=== PATIENT | male | born 1955 | race Caucasian/White ===

== ENCOUNTER 2024-01-07 21:37 | Inpatient (IN) | payer MEDICARE, OTHER, SELFPAY ==
[2024-01-07 17:56] VITALS: BP 150/86
[2024-01-07 18:34] LABS: % Basophils 0.6 % (0-2); % Eosinophils 1.7 % (0-6); % Immature Granulocytes 0.2 % (0-0.5); % Lymphocytes 19.6 % (20.5-51.1); % Monocytes 7.7 % (1.7-9.3); % Neutrophils 70.2 % (42.2-75.2); Absolute Basophils 0.1 10^3/uL (0-0.2); Absolute Eosinophils 0.2 10^3/uL (0-0.7); Absolute Lymphocytes 1.9 10^3/uL (1.2-3.4); Absolute Monocytes 0.8 10^3/uL (0.1-0.6); Hematocrit 42.1 % (39.0-52.0); Hemoglobin 13.5 g/dL (13.0-18.0); Mean Corp Hgb Conc. 32.1 g/dL (33.0-37.0); Mean Corpuscular Hgb 28.9 pg (27.0-31.0); Mean Corpuscular Volume 90.1 fL (80.0-94.0); Nucleated Red Blood Cells % 0 % (-); Platelet Count 268 10^3/uL (130-400); Red Blood Cell Count 4.67 10^6/uL (4.70-6.10); Red Cell Dist. Width 13.6 % (11.5-14.5); White Blood Cell Count 9.9 10^3/uL (4.8-10.8)
[2024-01-07 18:49] LABS: Blood Urea Nitrogen 16 mg/dl (9-20); Calcium 9.2 mg/dl (8.4-10.2); Carbon Dioxide 26 mmol/L (22-30); Chloride 103 mmol/L (98-107); Glucose 92 mg/dl (70-99); Sodium 138 mmol/L (135-145); eGFR > 60.00
[2024-01-07 19:03] VITALS: BP 139/78
[2024-01-07 19:14] LABS: Urine Albumin Negative (Neg - Trace); Urine Bilirubin Negative (Negative); Urine Character Slightly Cloudy (Clear); Urine Color Yellow; Urine Glucose Negative (Negative); Urine Ketone Trace (Negative); Urine Leukocyte 2+ (Negative); Urine Nitrite Positive (Negative); Urine Occult Blood Negative (Negative); Urine Urobilinogen Negative (Neg - 1+)
[2024-01-07 19:32] LABS: Urine Bacteria Many (Negative); Urine Red Blood Cell 0-2 /HPF (0-2); Urine White Cell 80-90 /HPF (0-5)
[2024-01-07 19:36] LABS: ALT (SGPT) 52 U/L (0-50); AST (SGOT) 68 U/L (17-59); Albumin 3.9 g/dl (3.5-5.0); Alkaline Phosphatase 52 U/L (38-126); Blood Urea Nitrogen 16 mg/dl (9-20); Calcium 9.2 mg/dl (8.4-10.2); Carbon Dioxide 22 mmol/L (22-30); Chloride 105 mmol/L (98-107); Glucose 95 mg/dl (70-99); Potassium 4.7 mmol/L (3.5-5.1); Sodium 136 mmol/L (135-145); Total Bilirubin 1.3 mg/dl (0.2-1.3); eGFR > 60.00
[2024-01-07 20:00] VITALS: BP 126/78
[2024-01-07] MEDS: ROCEPHIN 1000 MG IV (20:49)
--- NOTE | 2024-01-07 20:50 | HPS.HSE ---
Addendum entered and electronically signed by Wilber Orr DO 01/07/24 22:15:
Patient seen and examined independently. Agree with findings and plan as set forth by BRYCE Schmitz.
Patient is a 68y M with PMH significant for prior CVA with resultant R hemiparesis and expressive aphasia who was brought to the ED this evening by EMS after his home health aide appreciated increased generalized weakness. History obtained
primarily through discussion with ED staff and evaluation of patient. Attempted to contact family without success.
Patient is awake and alert and is able to answer Y/NN questions fairly consistently. He has expressive aphasia that prevents more detailed speech / open-ended questioning.
Patient denies any pain and denies any significant complaints at the moment the best I can tell.
Evaluation in the ED includes a UA which is suggestive of infection.
Ass:
UTI
Generalized Weakness
Right Hemiparesis / Expressive Aphasia as Late Effect of CVA
ASCVD / CVA
Colon Cancer
Plan:
Admit for further evaluation and treatment.
IV abx for now pending urine culture results.
PT / OT evaluations.
Follow for clinical improvement.
Continue current outpatient med regimen without changes.
Original Note:
Family Physician
-
Family Physician: NOT KNOW UNKNOWN - PT DOES
Chief Complaint
-
Generalized weakness
History of Present Illness
68-year-old with past medical history for CVA, hyperlipidemia right-sided hemiplegia from CVA, depression presented to us with generalized weakness. Patient not able to provide much of a history. As per ER nurse, he has 24 hours aide. he looked
weaker than usual so she called 911. Patient denied any DARBY,dizzy or syncopal episode. denied chest paoin, sob. denied abdominal pain,n ,v,d.denied dysuria or hematuria.
Positive UA in ER. Patient received a dose of ceftriaxone in ER. Admitting for further management
Attempted to reach son
Medical History
Past Medical History
Past Medical History: Reports Other
Additional Past Medical History:
CVA
Hyperlipidemia
Hemiplegia
Colon cancer
Past Surgical History: Reports Other
Additional Past Surgical History:
Small bowel resection
Social History
Unable to obtain full social history at this time due to: Dementia
Family History
Family History: Not pertinent
Allergies / Home Medications
Allergies reflects when Allergies were last updated in [facility].
Home Medications with original date entered in [facility]
Allergy/Medication List:
Allergies
Allergy/AdvReac Type Severity Reaction Status Date / Time
meperidine Allergy Unknown Verified 03/05/17 08:58
morphine Allergy Unknown Verified 03/05/17 08:58
Home Medications
aspirin 81 mg tablet,delayed release 81 mg PO DAILY 01/07/24
atorvastatin 40 mg tablet (Lipitor) 40 mg PO DAILY 01/07/24
citalopram 20 mg tablet (Celexa) 20 mg PO DAILY 01/07/24
Review of Systems
-
Unable to obtain full review of systems at this time due to: Dementia
Physical Exam
Vital Signs
Vital Signs
Temp Pulse Resp BP Pulse Ox
99.4 F 105 19 126/78 96
01/07/24 17:56 01/07/24 20:30 01/07/24 20:30 01/07/24 20:00 01/07/24 20:15
Physical Exam
General: Well Developed, Well Nourished and No Apparent Distress
HEENT: NormoCephalic, Moist mucous membranes and Atraumatic
Respiratory: Clear
Cardiac: S1/S2 and Regular Rhythm; No Murmur or Rub
GI: Soft, Non Tender, Non Distended and Normal Bowel Sounds; No Organomegaly
Rectal: Deferred by Provider
Musculoskeletal: No Clubbing, No Cyanosis and No Edema
Skin: No Rash
Neuro: Nonfocal/grossly intact
Laboratory Results
-
01/07/24 18:08
01/07/24 18:59
Laboratory Results
Total Bilirubin 1.3 mg/dl (0.2-1.3) 01/07/24 18:59
AST 68 U/L (17-59) H 01/07/24 18:59
ALT 52 U/L (0-50) H 01/07/24 18:59
Alkaline Phosphatase 52 U/L (38-126) 01/07/24 18:59
Data Reviewed
-
Lab Data: Labs Reviewed by me
Impression/Plan
-
#generalized weakness/low grade fever likely from UTI
-IV ceftriaxone in ER
-Urine culture pending
-Tylenol as needed for fever and pain.
-PT/OT consulted for weakness
-normal saline x1 bag
#LFT elevation likely dehydration
-ast 68,alt 52
-Trend LFT in a.m.
# History of CVA with right-sided weakness/expressive aphasia
-Aspirin and statin continued
# Depression
-Citalopram continued
# DVT prophylaxis
-Lovenox subcu
# CODE STATUS
-Full code
[2024-01-07 21:00] VITALS: BP 133/84
--- NOTE | 2024-01-07 21:06 | ED.GENMED ---
History of Present Illness
General
Chief Complaint: Weakness
Source: patient
Exam Limitations: none
Time Seen by Provider: 01/07/24 19:58
Nursing documentation reviewed up to this point in time: agreed with
Travel History
Have you had any contact with someone who has COVID-19?: Unable to Answer
Do you have any symptoms of coronavirus? Fever > 100 degrees, chills, cough, shortness of breath, sore throat, loss of taste or smell, muscle aches, or headache?: Unable to Answer
History of Present Illness
History of Present Illness:
The patient is a 68-year-old man with a past medical history of right-sided weakness due to stroke, who arrives due to general weakness. Patient denies all complaints. He denies nausea and vomiting. Patient has a history of chronic aphasia so is
a very limited historian. Patient denies cough, sore throat, headache and rash.
Past History
Past History
ED Past Medical History: CVA and Hypercholesterolemia
ED Past Surgical History: Other
Social History
Tobacco: Other
Alcohol: Other
Drug: None
Personal: Other
Living: with family
Employment: Retired
Family History
Family History: Unable to obtain
Review of Systems
Review of Systems
Allergies reviewed?: Yes
All Other Systems: ROS reviewed and negative except as documented in HPI and ROS
Constitutional: Reports fatigue
EENT: Reports no symptoms
Respiratory: Reports no symptoms
Cardiac: Reports no symptoms
ABD/GI: Reports no symptoms
: Reports no symptoms
Musculoskeletal: Reports no symptoms
Skin: Reports no symptoms
Neurological: Reports no symptoms
Endocrine: Reports no symptoms
Hematologic/Lymphatic: Reports no symptoms
Psychiatric: Reports no symptoms
Phy Exam
Physical Exam
Physical Exam:
Physical Exam
General: no apparent distress, not acutely ill
Neck: supple. no meningeal signs. normal psoterior pharynx
Heart: Tachycardic
Lungs: no acute respiratory distress. clear bilaterally
Abdomen: normal bowel sounds. not tender. no CVAT
Neuro: alert and oriented. Chronic right arm and right leg weakness
Skin: no rash
Psychiatric: well kept. interactive and cooperative
Extremities: 1+ pitting edema bilateral lower extremities. Negative Homans' sign
Course
Orders/Labs/Results
Orders:
Orders
01/07/24 18:01
Electrocardiogram (*1) Urgent
Reason for Study: Fatigue / Weakness
EKG- Treatment ONCE
01/07/24 18:08
Basic Metabolic Panel Urgent
Comment: BMP NO K
Complete Blood Count/With Diff Urgent
01/07/24 18:59
Comprehensive Metabolic Panel Urgent
Urinalysis Reflex To Culture Urgent
Date Specimen was Collected: 01/07/24
Time Specimen was Collected: 18:54
Urine Microscopic Reflex Cult Urgent
Urine Culture Urgent
EILEEN Source: U
Specimen Description:
Date Specimen was Collected: 01/07/24
Time Specimen was Collected: 18:54
01/07/24 20:44
CefTRIAXone [Rocephin] 1,000 mg IV NOW STA
Abnormal Lab Results
01/07/24 01/07/24
18:08 18:59
RBC 4.67 L 10^6/uL
(4.70-6.10)
MCHC 32.1 L g/dL
(33.0-37.0)
Absolute Neuts (auto) 7.0 H 10^3/uL
(1.4-6.5)
Absolute Monos (auto) 0.8 H 10^3/uL
(0.1-0.6)
Lymphocytes % 19.6 L %
(20.5-51.1)
AST 68 H U/L
(17-59)
ALT 52 H U/L
(0-50)
Urine Ketones Trace A
(Negative)
Urine Nitrite (Reflex) Positive A
(Negative)
Leukocyte Esterase Rfl 2+ A
(Negative)
Urine WBC (Reflex) 80-90 A /HPF
(0-5)
Urine Bacteria (Reflex) Many A
(Negative)
01/07/24 18:08
01/07/24 18:59
Vital Signs
Initial and Last Documented VS:
Initial Vital Signs
Temp Pulse Resp BP Pulse Ox
99.4 F 99 20 150/86 96
01/07/24 17:56 01/07/24 17:56 01/07/24 17:56 01/07/24 17:56 01/07/24 17:56
Last Documented Vital Signs
Temp Pulse Resp BP Pulse Ox
99.4 F 97 21 133/84 95
01/07/24 17:56 01/07/24 21:00 01/07/24 21:00 01/07/24 21:00 01/07/24 21:00
MDM/Problems Addressed
Differential Diagnosis Includes:
Acute UTI, pneumonia, hyponatremia
MDM/Problems Addressed:
Presents with acute generalized weakness
Chronic conditions affecting care: Other (History of right-sided weakness)
Acute Exacerbation and/or Progression of Chronic Illness: Neurological disorder
*Pulse Oximetry
Patient hypoxic: no
*EKG
Interpreted by ED Provider?: Yes
Interpretation: abnormal
Comparison EKG: no comparison EKG present
Rate: normal
Rhythm: sinus
[place]: left axis deviation
Interval: normal interval
QRS Pattern: normal QRS
Ischemia: non-specific ST changes
*Text Transcriber Interpretation
Rate: tachycardiac
Interpretation: abnormal
Rhythm: sinus
*Critical Care Note
Total Time (30-74mins, 75-104mins- exclusive of procedures): Not Applicable
ED Attending Note
-
Portions of this chart may have been created with voice recognition software.� Occasional wrong word or��sound alike� substitutions may have occurred due to the inherent limitations of voice recognition software.
Discharge Plan
Departure
Patient Disposition: Admit
Date of Disposition: 01/07/24
Time of Disposition: 20:45
Admit to: Med/Surg
Presentation/result/management discussed w/ accepting MD/DO: Hospitalist
Patient with high blood pressure during this ER visit?: Yes
Condition: Good
Covid-19: Not Applicable
Discharge Problem:
Acute UTI, Generalized weakness
Prescriptions:
No Action
citalopram [Celexa] 20 mg Tablet
20 mg PO DAILY
atorvastatin [Lipitor] 40 mg Tablet
40 mg PO DAILY
aspirin 81 mg Tablet,Delayed Release (Dr/Ec)
81 mg PO DAILY
Referrals:
UNKNOWN - PT DOES,NOT KNOW [Family Provider] -
Interventions
Interventions:
*Risk Screen - Suicide Last Done: 01/07/24 17:56
*General Assessment Last Done: 01/07/24 17:56
*Neglect/Abuse Screening Last Done: 01/07/24 17:56
*ED COVID-19 Vaccine History Last Done: 01/07/24 17:56
ED- Cardiac Assessment Last Done: 01/07/24 18:09
ED- Neurological Assessment Last Done: 01/07/24 18:09
ED- Pulmonary Assessment Last Done: 01/07/24 18:09
Discharge Date and Time
Print Language: WALLISIAN
[2024-01-07 22:30] VITALS: BMI 35.2
[2024-01-07] MEDS: NSS 1000 IV (22:32)
[2024-01-07 23:06] VITALS: BP 124/78
[2024-01-08 07:00] VITALS: BP 96/57
[2024-01-08 07:15] LABS: Hematocrit 35.1 % (39.0-52.0); Hemoglobin 11.7 g/dL (13.0-18.0); Mean Corp Hgb Conc. 33.3 g/dL (33.0-37.0); Mean Corpuscular Volume 87.1 fL (80.0-94.0); Mean Platelet Volume 10.2 fL (7.4-10.4); Platelet Count 249 10^3/uL (130-400); Red Blood Cell Count 4.03 10^6/uL (4.70-6.10); Red Cell Dist. Width 13.5 % (11.5-14.5); White Blood Cell Count 6.5 10^3/uL (4.8-10.8)
[2024-01-08 07:37] LABS: Blood Urea Nitrogen 14 mg/dl (9-20); Calcium 8.5 mg/dl (8.4-10.2); Carbon Dioxide 24 mmol/L (22-30); Chloride 107 mmol/L (98-107); Estimated Creatinine Clearance 121 ml/min; Glucose 90 mg/dl (70-99); Potassium 4.1 mmol/L (3.5-5.1); Sodium 138 mmol/L (135-145); eGFR > 60.00
[2024-01-08] MEDS: CELEXA 20 MG PO (09:06)
[2024-01-08] MEDS: LIPITOR 40 MG PO (09:06)
[2024-01-08] MEDS: ASPIR LOW (ENTERIC COATED) 81 MG PO (09:06)
--- NOTE | 2024-01-08 12:39 | W.PN.HOSP.TC ---
Today's Communication/Plan
-
see A/P
Assessment / Plan
Assessment / Plan
HPI: 68 yo M with PMH significant for prior CVA with resultant R hemiparesis and expressive aphasia who was brought to the ED after his home health aide noted increased generalized weakness.
History was obtained primarily through discussion with ED staff and evaluation of patient.
Patient is awake and alert and is able to answer Y/N questions fairly consistently. He has expressive aphasia that prevents more detailed speech / open-ended questioning.
Evaluation in the ED includes a UA which is suggestive of infection.
A/P
# Generalized Weakness likely due to UTI
IV Ceftriaxone for now pending urine culture results.
PT / OT evaluations.
# Mild transaminitis likely reactive
Cont to monitor LFT
# BL LE edema, R > L
check BL LE US
# Chronic Right Hemiparesis / Expressive Aphasia due to previous stroke
# ASCVD / CVA
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
# h/o Colon Cancer
# Depression
cont [employer] IMM[employer] Citalopram
DVT ppx: Lovenox SQ
FC
DW RN
Anticipated Discharge: 24 - 48 hours
Subjective/Interval History
-
Date of Service: January 08, 2024
Objective Data
-
Labs:
Laboratory Results
01/08/24
06:19
WBC 6.5
Hgb 11.7 L
Hct 35.1 L
Plt Count 249
Sodium 138
Potassium 4.1
Chloride 107
Carbon Dioxide 24
BUN 14
Creatinine 0.7
Glucose 90
Calcium 8.5
Vital Signs:
Vital Signs
Temp Pulse Resp BP Pulse Ox
36.6 C 72 16 96/57 96
01/08/24 07:00 01/08/24 07:00 01/08/24 07:00 01/08/24 07:00 01/08/24 07:00
I&O
01/07/24 01/08/24 01/09/24
06:59 06:59 06:59
Output Total 200 / 200
Balance -200 / -200
Review of Systems
-
Unable to obtain full review of systems at this time due to: Other (aphasia due to previous stroke )
Physical Exam
-
General: Well Developed, Well Nourished, No Apparent Distress, Comfortable and Obese; Negative Respiratory Distress
HEENT: Normocephalic, Atraumatic, Nose Appears Normal and Ears Appear Normal; Negative Oxygen
Respiratory: Clear to Auscultation and Non Labored Respirations; Negative Accessory Resp Muscle Use
Cardiac: Regular Rhythm and S1/S2
GI: Soft, Nontender, Nondistended and Normal Bowel Sounds
Skin: Warm and Dry
Neuro: Awake, Alert and Other (aphasia at baseline )
Psych: Calm
Data Reviewed
-
Labs: Labs Reviewed by me
[2024-01-08 14:23] VITALS: BP 120/78; PULSE 80
[2024-01-08 15:00] VITALS: BP 103/61
[2024-01-08] MEDS: LOVENOX 40 MG SC (17:36)
[2024-01-08] MEDS: STERILE WATER FOR INJECTION 10 ML IV (20:11)
[2024-01-08] MEDS: ROCEPHIN 1000 MG IV (20:12)
[2024-01-08 23:52] VITALS: BP 132/75
[2024-01-09 07:00] VITALS: BP 108/71
[2024-01-09 07:48] LABS: Hematocrit 36.1 % (39.0-52.0); Mean Corp Hgb Conc. 33.2 g/dL (33.0-37.0); Mean Corpuscular Hgb 29.1 pg (27.0-31.0); Mean Corpuscular Volume 87.4 fL (80.0-94.0); Mean Platelet Volume 10.5 fL (7.4-10.4); Platelet Count 238 10^3/uL (130-400); Red Blood Cell Count 4.13 10^6/uL (4.70-6.10); Red Cell Dist. Width 13.5 % (11.5-14.5); White Blood Cell Count 5.6 10^3/uL (4.8-10.8)
[2024-01-09 08:10] LABS: ALT (SGPT) 45 U/L (0-50); AST (SGOT) 50 U/L (17-59); Albumin 3.3 g/dl (3.5-5.0); Alkaline Phosphatase 50 U/L (38-126); Blood Urea Nitrogen 12 mg/dl (9-20); Calcium 8.6 mg/dl (8.4-10.2); Carbon Dioxide 23 mmol/L (22-30); Chloride 108 mmol/L (98-107); Direct Bilirubin 0.2 mg/dl (0.0-0.4); Estimated Creatinine Clearance > 125 ml/min; Glucose 91 mg/dl (70-99); Potassium 4.4 mmol/L (3.5-5.1); Sodium 138 mmol/L (135-145); Total Bilirubin 1.1 mg/dl (0.2-1.3); Total Protein 6.1 g/dl (6.3-8.2); eGFR > 60.00
[2024-01-09] MEDS: LIPITOR 40 MG PO (08:23)
[2024-01-09] MEDS: ASPIR LOW (ENTERIC COATED) 81 MG PO (08:23)
[2024-01-09] MEDS: CELEXA 20 MG PO (08:23)
--- NOTE | 2024-01-09 11:29 | W.PN.HOSP.TC ---
Today's Communication/Plan
-
see A/P
Assessment / Plan
Assessment / Plan
HPI: 68 yo M with PMH significant for prior CVA with resultant R hemiparesis and expressive aphasia who was brought to the ED after his home health aide noted increased generalized weakness.
History was obtained primarily through discussion with ED staff and evaluation of patient.
Patient is awake and alert and is able to answer Y/N questions fairly consistently. He has expressive aphasia that prevents more detailed speech / open-ended questioning.
Evaluation in the ED includes a UA which is suggestive of infection.
A/P
# Generalized Weakness likely due to UTI
Urine Cx growing GNR, cont to follow
Cont IV Ceftriaxone
PT / OT : no need
# Mild transaminitis likely reactive , resolved
# BL LE edema, R > L
check BL LE US
# Chronic Right Hemiparesis / Expressive Aphasia due to previous stroke
# ASCVD / CVA
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
# h/o Colon Cancer
# Depression
cont [employer]GER [employer] Citalopram
DVT ppx: Lovenox SQ
FC
DW RN
Anticipated Discharge: Within 24 hours
Subjective/Interval History
-
Date of Service: January 09, 2024
Objective Data
-
Labs:
Laboratory Results
01/09/24
06:59
WBC 5.6
Hgb 12.0 L
Hct 36.1 L
Plt Count 238
Sodium 138
Potassium 4.4
Chloride 108 H
Carbon Dioxide 23
BUN 12
Creatinine 0.6 L
Glucose 91
Calcium 8.6
Total Bilirubin 1.1
AST 50
ALT 45
Alkaline Phosphatase 50
Vital Signs:
Vital Signs
Temp Pulse Resp BP Pulse Ox
36.6 C 71 18 108/71 95
01/09/24 07:00 01/09/24 07:00 01/09/24 07:00 01/09/24 07:00 01/09/24 07:00
I&O
01/08/24 01/09/24 01/10/24
06:59 06:59 06:59
Intake Total 480 / 480
Output Total 200 / 200 800 / 800
Balance -200 / -200 -320 / -320
Review of Systems
-
Unable to obtain full review of systems at this time due to: Other (aphasia due to previous stroke )
Physical Exam
-
General: Well Developed, Well Nourished, No Apparent Distress, Comfortable and Obese; Negative Respiratory Distress or Conversant (only able to say 'yeah yeah')
HEENT: Normocephalic, Atraumatic, Nose Appears Normal and Ears Appear Normal; Negative Oxygen
Respiratory: Clear to Auscultation and Non Labored Respirations; Negative Accessory Resp Muscle Use
Cardiac: Regular Rhythm and S1/S2
GI: Soft, Nontender, Nondistended and Normal Bowel Sounds
Skin: Warm and Dry
Neuro: Awake, Alert and Other (aphasia at baseline )
Psych: Calm
Data Reviewed
-
Labs: Labs Reviewed by me
[2024-01-09 15:00] VITALS: BP 104/69
[2024-01-09] MEDS: LOVENOX 40 MG SC (17:17)
[2024-01-09] MEDS: ROCEPHIN 1000 MG IV (20:34)
[2024-01-09] MEDS: STERILE WATER FOR INJECTION 10 ML IV (20:35)
[2024-01-09 22:53] VITALS: BP 125/69
[2024-01-10 07:10] VITALS: BP 102/63
[2024-01-10 07:47] LABS: Hemoglobin 12.8 g/dL (13.0-18.0); Mean Corp Hgb Conc. 32.8 g/dL (33.0-37.0); Mean Corpuscular Hgb 29.2 pg (27.0-31.0); Mean Corpuscular Volume 88.8 fL (80.0-94.0); Mean Platelet Volume 10.7 fL (7.4-10.4); Platelet Count 244 10^3/uL (130-400); Red Blood Cell Count 4.39 10^6/uL (4.70-6.10); Red Cell Dist. Width 13.4 % (11.5-14.5); White Blood Cell Count 5.8 10^3/uL (4.8-10.8)
[2024-01-10 08:28] LABS: ALT (SGPT) 58 U/L (0-50); AST (SGOT) 64 U/L (17-59); Albumin 3.4 g/dl (3.5-5.0); Alkaline Phosphatase 49 U/L (38-126); Blood Urea Nitrogen 14 mg/dl (9-20); Calcium 8.8 mg/dl (8.4-10.2); Carbon Dioxide 22 mmol/L (22-30); Chloride 108 mmol/L (98-107); Direct Bilirubin 0.3 mg/dl (0.0-0.4); Estimated Creatinine Clearance 121 ml/min; Glucose 91 mg/dl (70-99); Potassium 4.2 mmol/L (3.5-5.1); Sodium 137 mmol/L (135-145); Total Bilirubin 0.9 mg/dl (0.2-1.3); Total Protein 6.4 g/dl (6.3-8.2); eGFR > 60.00
[2024-01-10] MEDS: ASPIR LOW (ENTERIC COATED) 81 MG PO (08:30)
[2024-01-10] MEDS: CELEXA 20 MG PO (08:30)
[2024-01-10] MEDS: LIPITOR 40 MG PO (08:30)
--- NOTE | 2024-01-10 11:22 | W.PN.HOSP.TC ---
Today's Communication/Plan
-
see A/P
Assessment / Plan
Assessment / Plan
HPI: 68 yo M with PMH significant for prior CVA with resultant R hemiparesis and expressive aphasia who was brought to the ED after his home health aide noted increased generalized weakness.
History was obtained primarily through discussion with ED staff and evaluation of patient.
Patient is awake and alert and is able to answer Y/N questions fairly consistently. He has expressive aphasia that prevents more detailed speech / open-ended questioning.
Evaluation in the ED includes a UA which is suggestive of infection.
A/P
# Generalized Weakness likely due to UTI
Urine Cx growing pansensitive E coli
Cont IV Ceftriaxone and change to Keflex upon discharge
Check kidney US
PT / OT: no need
# Mild transaminitis likely reactive , resolved
# BL LE edema, R > L
BL LE US neg for DVT
# Chronic Right Hemiparesis / Expressive Aphasia due to previous stroke
# ASCVD / CVA
Continue BREAD STACKER ASA, Lipitor
# h/o Colon Cancer
# Depression
cont BREAD STACKER Citalopram
DVT ppx: Lovenox SQ
FC
DW CM
DW son on the phone
Anticipated Discharge: Today
Subjective/Interval History
-
Date of Service: January 10, 2024
Objective Data
-
Labs:
Laboratory Results
01/10/24
06:57
WBC 5.8
Hgb 12.8 L
Hct 39.0
Plt Count 244
Sodium 137
Potassium 4.2
Chloride 108 H
Carbon Dioxide 22
BUN 14
Creatinine 0.7
Glucose 91
Calcium 8.8
Total Bilirubin 0.9
AST 64 H
ALT 58 H
Alkaline Phosphatase 49
Vital Signs:
Vital Signs
Temp Pulse Resp BP Pulse Ox
36.6 C 62 16 102/63 96
01/10/24 07:10 01/10/24 07:10 01/10/24 07:10 01/10/24 07:10 01/10/24 08:32
I&O
01/09/24 01/10/24 01/11/24
06:59 06:59 06:59
Intake Total 480 / 480 1440 / 1440
Output Total 800 / 800 1200 / 1200
Balance -320 / -320 240 / 240
Review of Systems
-
Unable to obtain full review of systems at this time due to: Other (aphasia due to previous stroke )
Physical Exam
-
General: Well Developed, Well Nourished, No Apparent Distress, Comfortable and Obese; Negative Respiratory Distress or Conversant (only able to say 'yeah yeah')
HEENT: Normocephalic, Atraumatic, Nose Appears Normal and Ears Appear Normal; Negative Oxygen
Respiratory: Clear to Auscultation and Non Labored Respirations; Negative Accessory Resp Muscle Use
Cardiac: Regular Rhythm and S1/S2
GI: Soft, Nontender, Nondistended and Normal Bowel Sounds
Skin: Warm and Dry
Neuro: Awake, Alert and Other (aphasia at baseline )
Psych: Calm
Data Reviewed
-
Ultrasound: Report Reviewed by me
Labs: Labs Reviewed by me
--- NOTE | 2024-01-10 11:51 | CM ---
Addendum entered by Kailee Dumont 01/10/24 14:58:
Per OT note, patient remains 2 person Max Assist, recommending short term rehab.
Addendum entered by Kailee Dumont 01/10/24 12:02:
Call placed to PT/OT to request patient seen again to see if patient still requires Max A of two.
Original Note:
Patient seen bedside, only responding to CM saying 'yeah'. CM spoke with patients son, Mundo, to conduct initial assessment. Mundo reports patient lives at home with 01/03 caregiver through [facility]. Patient lives in a two story home with a
first floor set up, has a wheelchair, scooter, and hospital bed. Son reports patient typically is able to get up by himself or with assist of his caregiver. Son unsure of patients PCP.
CM received call from patients daughter, Devora [phone], provided [facility] contact info- [phone], either Kit or Devora. Per daughter, patient cannot return home if he is an assist of two people, patients baseline typically is an assist of one.
Devora reports caregivers cannot accept patient back home if he is an assist of two, per therapy notes, patient is a Max assist of two. Patients daughter reports patient has been to [facility] in past after stroke. Devora requesting [facility] to
[facility] rehabs in [facility] as they are close to patients family. Devora reports patients pharmacy is [facility] [address] [place] [address]. CM will update Hospitalist. CM will send referrals to SNFS, will continue to follow for
discharge planning needs.
Plan; SNF pending accepting facility.
[2024-01-10 15:00] VITALS: BP 124/74
[2024-01-10] MEDS: LOVENOX 40 MG SC (17:54)
[2024-01-10] MEDS: ROCEPHIN 1000 MG IV (20:48)
[2024-01-10] MEDS: STERILE WATER FOR INJECTION 10 ML IV (20:48)
[2024-01-10 23:15] VITALS: BP 123/68
[2024-01-11 00:46] VITALS: BP 123/68
[2024-01-11 07:04] LABS: Hemoglobin 13.3 g/dL (13.0-18.0); Mean Corp Hgb Conc. 32.4 g/dL (33.0-37.0); Mean Corpuscular Hgb 29.1 pg (27.0-31.0); Mean Corpuscular Volume 89.7 fL (80.0-94.0); Red Blood Cell Count 4.57 10^6/uL (4.70-6.10); Red Cell Dist. Width 13.5 % (11.5-14.5); White Blood Cell Count 6.8 10^3/uL (4.8-10.8)
[2024-01-11 07:20] VITALS: BP 99/60
[2024-01-11] MEDS: CELEXA 20 MG PO (10:52)
[2024-01-11] MEDS: LIPITOR 40 MG PO (10:52)
[2024-01-11] MEDS: ASPIR LOW (ENTERIC COATED) 81 MG PO (10:52)
--- NOTE | 2024-01-11 13:05 | W.PN.HOSP.TC ---
Today's Communication/Plan
-
waiting for SNF
Assessment / Plan
Assessment / Plan
HPI: 68 yo M with PMH significant for prior CVA with resultant R hemiparesis and expressive aphasia who was brought to the ED after his home health aide noted increased generalized weakness.
History was obtained primarily through discussion with ED staff and evaluation of patient.
Patient is awake and alert and is able to answer Y/N questions fairly consistently. He has expressive aphasia that prevents more detailed speech / open-ended questioning.
Evaluation in the ED includes a UA which is suggestive of infection.
Generalized Weakness likely due to E. coli UTI --Urine Cx growing pansensitive E coli--Cont IV Ceftriaxone and change to Keflex upon discharge--renal US unremarkable
Mild transaminitis likely reactive , resolved
BL LE edema, R > L--BL LE US neg for DVT
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
h/o Colon Cancer
Depression--cont FRUIT I FARMWORKER Citalopram
DVT ppx: Lovenox SQ
Full code
Anticipated Discharge: Within 24 hours
Subjective/Interval History
-
Date of Service: January 11, 2024
pt only answers yeah, yeah, yeah
Objective Data
-
Labs:
Laboratory Results
01/11/24 01/11/24
06:18 08:00
WBC 6.8
Hgb 13.3
Hct 41.0
Plt Count
Sodium Cancelled Pending
Potassium Cancelled Pending
Chloride Cancelled Pending
Carbon Dioxide Cancelled Pending
BUN Cancelled Pending
Creatinine Cancelled Pending
Glucose Cancelled Pending
Calcium Cancelled Pending
Total Bilirubin Cancelled Pending
AST Cancelled Pending
ALT Cancelled Pending
Alkaline Phosphatase Cancelled Pending
Vital Signs:
max temp for 24 hours
01/10/24
15:00
Temp 98.5 F
Vital Signs
Temp Pulse Resp BP Pulse Ox
98.1 F 57 17 99/60 95
01/11/24 07:20 01/11/24 07:20 01/11/24 07:20 01/11/24 07:20 01/11/24 07:20
I&O
01/10/24 01/11/24 01/12/24
06:59 06:59 06:59
Intake Total 1440 / 1440 1200 / 1200
Output Total 1200 / 1200 750 / 750
Balance 240 / 240 450 / 450
Review of Systems
-
Unable to obtain full review of systems at this time due to: Language Barrier
Physical Exam
-
General: Well Developed, Well Nourished and No Apparent Distress
HEENT: Normocephalic and Atraumatic
Respiratory: Clear to Auscultation; Negative Wheezes or Rhonchi
Cardiac: Regular Rhythm and S1/S2; Negative Murmur
GI: Soft, Nontender, Nondistended and Normal Bowel Sounds
Musculoskeletal: Negative No Edema (right upper arm edema)
Neuro: Awake and Alert
Psych: Calm
[2024-01-11 15:14] VITALS: BP 122/65
--- NOTE | 2024-01-11 15:34 | CM ---
Addendum entered by Lashon Collins 01/11/24 15:46:
pickle maker is 8;30 for ambulance.
Original Note:
Patient accepted by [facility]. Admissions talked to patient daughter,CM called daughter Devora and reviewed IMM and will email for to Devora [email or web address]. Please call report [phone]/ fax [phone] [address] address is [address] [place] [id number]. CM will continue to follow for discharge planning needs.
Plan; SNF today
--- NOTE | 2024-01-11 16:55 | W.DCSUMMARY ---
Discharge Summary
Discharge Data
Date of Admission: 01/07/24
Date of Discharge: 01/11/24
-
Pending Results: No
Hospital Course
Primary care physician : Not Listed
Principal Discharge diagnosis : Weakness due to Escherichia coli urinary tract infection with mild transaminitis likely reactive
Chronic Discharge diagnosis : Bilateral lower extremity edema, chronic right hemiparesis with expressive aphasia due to previous stroke, history of colon cancer, depression
Hospital Course : Patient is a 68-year-old male with a history of aphasia and right-sided hemiplegia from previous CVA who presented with generalized weakness. Patient has an aide for 24 hours and he looked weaker than usual so she called 911. He
was found to have a positive urinalysis in the emergency department and was admitted.
Problem #1: Weakness due to Escherichia coli urinary tract infection with mild transaminitis likely reactive. Patient was admitted and started on IV ceftriaxone. Urine culture grew pansensitive Escherichia coli. Renal ultrasound was performed
which was essentially negative. He was transitioned from IV ceftriaxone to Keflex upon discharge. Original plan was to discharge the patient home however, patient was a two-person assist and his aids could not handle that. Plans have now been to
send patient to half-way facility. He has been accepted to the SNF of his choice.
Problem #2: All other medical issues. These include Bilateral lower extremity edema, chronic right hemiparesis with expressive aphasia due to previous stroke, history of colon cancer, depression. These medical issues were stable during his
hospitalization. Medications were continued as able.
Patient is stable for discharge to the rehab at this time. If there are any questions regarding this dictation or his hospital stay, please not hesitate to call. Our office number is [phone].
Important imaging findings :
RENAL ULTRASOUND IMPRESSION:
Bilateral renal cortical thinning. Otherwise unremarkable renal ultrasound.
Discharge Plan
-
Patient Disposition: Retirement/SNF
Discharge Diagnosis/Procedures: Generalized Weakness likely due to complicated urinary tract infection (jorgensen-sensitive E coli); Chronic Right Hemiparesis / Expressive Aphasia due to previous stroke, history of colon cancer, depression
Condition: Fair
Diet: As tolerated, Low Fat, Low Cholesterol and 2 Gram Sodium
Activity: As tolerated
Driving Restrictions: No driving
Bathing Restrictions: None
Referrals:
UNKNOWN - PT DOES,NOT KNOW [Family Provider] - in less than 1 week
Additional Discharge Medication Instructions: Continue Keflex for 11 more days to complete course of treatment
Prescriptions:
New
cephalexin 500 mg capsule
500 mg PO BID 11 Days Qty: 22 0RF
Continued
citalopram [Celexa] 20 mg Tablet
20 mg PO DAILY
atorvastatin [Lipitor] 40 mg Tablet
40 mg PO DAILY
aspirin 81 mg Tablet,Delayed Release (Dr/Ec)
81 mg PO DAILY
Discharge Orders:
Discharge Patient (As Directed); Ordered 01/11/24
Ordered By: Yolanda Bettencourt
Discharge Date and Time
Print Language: ARABIC
--- NOTE | 2024-01-11 17:08 | PTCARENOTE ---
1700 Report given over phone to nurse at [facility]. Pt will be transported via ambulance yaakov fried aware.
[2024-01-11] MEDS: LOVENOX 40 MG SC (18:34)
[2024-01-11 19:30] VITALS: BP 110/71
[2024-01-11] MEDS: KEFLEX 500 MG PO (19:59)
== END 2024-01-11 22:21 | DRG 690 ==
LOC: 4 WEST ACU 21:37
PROVIDERS: Emergency Medicine; Registered Nurse; ADMITTING PHYSICIAN Hospitalist; ATTENDING PHYSICIAN Internal Medicine; EMERGENCY PHYSICIAN Emergency Medicine
DX: N39.0 Urinary tract infection, site not specified (principal); I69.351 Hemiplegia and hemiparesis following cerebral infarction affecting right dominant side; F03.93 Unspecified dementia, unspecified severity, with mood disturbance; I69.320 Aphasia following cerebral infarction; B96.20 Unspecified Escherichia coli [E. coli] as the cause of diseases classified elsewhere; E78.00 Pure hypercholesterolemia, unspecified; F32.A Depression, unspecified; R60.0 Localized edema; I25.10 Atherosclerotic heart disease of native coronary artery without angina pectoris; Z79.82 Long term (current) use of aspirin; Z79.899 Other long term (current) drug therapy; Z85.038 Personal history of other malignant neoplasm of large intestine
CPT/HCPCS: 76775; 80048; 80053; 81003; 81015; 82248; 85025; 85027; 87077; 87086; 87186; 93005; 93970; 97162; 97166; 97530; 97535; 99284

== ENCOUNTER 2024-11-06 07:46 | Inpatient (IN) | payer MEDICARE, OTHER, SELFPAY ==
[2024-11-03] VITALS (7 sets, daily range): BP systolic 103–128; BP diastolic 58–69; BMI 29.6
--- NOTE | 2024-11-03 18:42 | ED.GENMED ---
History of Present Illness
General
Chief Complaint: Fall
Source: family (Called and spoke to patient's daughter who states patient has been more weak over the past 3 days and had a few falls-she feels he is not drinking enough)
Exam Limitations: non verbal-adult (aphasia s/p CVA 2016)
Time Seen by Provider: 11/03/24 18:28
Nursing documentation reviewed up to this point in time: agreed with
History of Present Illness
History of Present Illness:
Patient is a 69-year-old male history CVA with right sided hemiaplasia and aphasia presenting to the emergency department today via EMS for report of generalized weakness and frequent falls over the past 3 days. Patient unable to contribute much to
history given history of aphasia. Patient is able to answer yes/no questions. He denies any headache, chest pain, shortness of breath, abdominal pain. He is drinking water on my examination and tolerating it well.
Did call and contact patient's daughter who states that patient does have a 24-hour caregiver. Patient apparently is able to transfer with assistance although over the past 3 days he has been unable to do so. He seems increasingly weak and has had
a few minor falls. Unknown if there was any head strike associated with these falls. There has been no reported change in mental status. Patient's daughter is unaware of any infectious symptoms including fever or cough recently. She does not
feel that he has been drinking enough water.
Past History
Past History
ED Past Medical History: CVA and Hypercholesterolemia
ED Past Surgical History: Other
Social History
Tobacco: Other
Alcohol: Other
Drug: None
Personal: Other
Living: with family
Employment: Retired
Family History
Family History: Unable to obtain
Review of Systems
Review of Systems
Allergies reviewed?: Yes
All Other Systems: ROS reviewed and negative except as documented in HPI and ROS
Phy Exam
Physical Exam
Physical Exam:
Vitals: Patient's vital signs are stable. Afebrile
General: Patient is in no acute distress.
Skin: Warm and dry, no rashes or lesions
Head: Normocephalic, atraumatic
Eyes: Sclera nonicteric. EOMs intact. No nystagmus.
Throat: Dry mucous membranes. Protecting airway
Neck: Normal ROM, no cervical spine tenderness, no meningismus
Cardiac: Regular rate and rhythm, no murmurs.
Pulm: Normal respiratory effort, no wheezes, rales, rhonchi heard on exam.
Abdomen: Abdomen soft and nontender. No rebound tenderness or guarding.
Extremities: No evidence of cyanosis or edema. Palpable DP pulses bilaterally
Neuro: Expressive aphasia. Answers yes/no questions. Right-sided hemiaplasia.
Psychiatric: Normal affect.
Course
Orders/Labs/Results
Orders:
Orders
11/03/24 Dinner
Cholesterol Lowering
At Your Request: Limited, Stock Handler Floorperson Required
Cholesterol Lowering: Sodium, 2 Gram
11/03/24 18:35
Cervical Spine wo Contrast CT [CT Cervical Spine W/o Iv Contr] Urgent
Comment:
Reason For Exam: unwitnessed fall
11/03/24 18:36
CT Head W/o Iv Contrast Urgent
Comment:
Reason For Exam: unwitnessed falls
11/03/24 18:37
0.9% Sodium Chloride 1000 ml [Nss] 1,000 ml IV BOLUS
11/03/24 18:39
CR Chest - 2 Views Urgent
Comment:
Reason For Exam: weakness
11/03/24 18:48
Complete Blood Count/With Diff Urgent
Comprehensive Metabolic Panel Urgent
11/03/24 19:22
Urinalysis Reflex To Culture Urgent
Date Specimen was Collected: 11/03/24
Time Specimen was Collected: 19:09
Urine Microscopic Reflex Cult Urgent
Urine Culture Urgent
EILEEN Source: U
Specimen Description:
Date Specimen was Collected: 11/03/24
Time Specimen was Collected: 19:09
11/03/24 19:36
Electrocardiogram (*1) Urgent
Reason for Study: Fatigue / Weakness
EKG- Treatment ONCE
11/03/24 20:59
CefTRIAXone [Rocephin] 1,000 mg IV NOW STA
11/03/24 21:05
Sterile Water [Sterile Water For Injection] 10 ml .ROUTE .STK-MED ONE
11/03/24 22:00
Flush (0.9% Sodium Chloride) [Flush (Nss)] See Dose Instructions IV PER PROTOCOL
11/03/24 22:06
Admit/Transfer Patient As Directed
Co-Sign Provider:
Level of Care: Observation services
Assign to:: Medical/Surgical
Physician / Group: Tanner Branham
Diagnosis: UTI, ambulatory dysfunction
11/03/24 22:07
PRN Pain Medication Management As Directed
May give lesser potent ordered pain med per pt: Yes
preference::
Protocol:: Medication orders for pain may be administered in a
manner that supports deferring to patient preference
when the pt is:
- Requesting an ordered lesser potent pain medication.
Least to most potent pain medications are defined
as: acetaminophen < NSAID < tramadol < opioids
(morphine, oxycodone, hydromorphone).
- Requesting a lesser dose of the same medication IF
ORDERED.
- Requesting a less intrusive route of administration
if both routes are prescribed by the provider (PO <
IV).
11/03/24 22:08
Code Status As Directed
Resuscitation Status: Full Code
11/03/24 23:16
Acetaminophen [Tylenol] 650 mg PO Q4HPRN PRN
Magnesium Hydroxide [Milk of Magnesia] 30 ml PO DAILY PRN
11/03/24 23:16
Activity As Directed
Activity Level: With Assistance
Vital Signs As Directed
Frequency: Per unit guidelines
Weight As Directed
Frequency: Once
Comment: on admission
Pt Eval And Treat Routine
Activity Level: With Assistance
DX Deep Vein Thrombosis Video Routine
11/04/24 06:00
Basic Metabolic Panel IN AM
Complete Blood Count/No Diff IN AM
11/04/24 08:00
Aspirin Low Dose EC [Aspir Low (Enteric Coated)] 81 mg PO DAILY
Citalopram [Celexa] 20 mg PO DAILY
Docusate Sodium [Colace] 100 mg PO DAILY
Polyethylene Glycol Powder [Miralax] 17 grams PO DAILY
11/04/24 18:00
Enoxaparin Sodium [Lovenox] 40 mg SC QPM
11/04/24 20:00
CefTRIAXone [Rocephin] 1,000 mg IV Q24H
11/04/24 22:00
Atorvastatin [Lipitor] 40 mg PO HS
Abnormal Lab Results
11/03/24 11/03/24
18:48 19:22
WBC 12.8 H 10^3/uL
(4.8-10.8)
RBC 3.94 L 10^6/uL
(4.70-6.10)
Hgb 11.6 L g/dL
(13.0-18.0)
Hct 34.4 L %
(39.0-52.0)
Abs Immat Gran (auto) 0.1 H 10^3/uL
(0-0.05)
Absolute Neuts (auto) 10.4 H 10^3/uL
(1.4-6.5)
Absolute Monos (auto) 1.1 H 10^3/uL
(0.1-0.6)
Neutrophils % 81.6 H %
(42.2-75.2)
Lymphocytes % 9.5 L %
(20.5-51.1)
BUN 27 H mg/dl
(9-20)
Glucose 133 H mg/dl
(70-99)
Ur Occult Blood Reflex 2+ A
(Negative)
Urine Nitrite (Reflex) Positive A
(Negative)
Leukocyte Esterase Rfl 3+ A
(Negative)
Urine WBC (Reflex) 60-70 A /HPF
(0-5)
Urine Bacteria (Reflex) Many A
(Negative)
Urine Albumin (Reflex) 2+ A
(Neg - Trace)
11/03/24 18:48
11/03/24 18:48
Vital Signs
Initial and Last Documented VS:
Initial Vital Signs
Temp Pulse Resp BP Pulse Ox
98.5 F 90 19 117/69 96
11/03/24 16:17 11/03/24 16:17 11/03/24 16:17 11/03/24 16:17 11/03/24 16:17
Last Documented Vital Signs
Temp Pulse Resp BP Pulse Ox
100.4 F H 84 19 107/64 95
11/03/24 23:35 11/03/24 23:35 11/03/24 23:35 11/03/24 23:35 11/03/24 23:35
MDM/Problems Addressed
Differential Diagnosis Includes:
Not limited to: Acute dehydration, UTI, pyelonephritis, viral illness, pneumonia, CVA, traumatic head injury from fall, etc.
MDM/Problems Addressed:
69-year-old male with history as documented presenting with worsening weakness and frequent falls at home. Unknown if there is any associated head strike. Vital stable on arrival. Physical exam as above. No evidence of head or neck trauma.
Abdomen soft and nontender. Cardio/pulmonary assessment unremarkable. No evidence of extremity injury. Differential broad presenting generalized weakness although considerations include possible infectious process, dehydration, arrhythmia,
electrolyte imbalance, etc. Will check basic labs, urinalysis, EKG, chest x-ray. Given expressive aphasia and limited history taking�will obtain CT head/cervical spine to rule out traumatic injuries. Patient appears very dry�will give IV fluids,
closely monitor and reassess.
Update: Labs reviewed leukocytosis of 12.8. Chemistry without abnormal findings. Catheterized urine specimen appears infected. Chest x-ray does not appear to have any focal infiltrate on my examination. Fortunately CT head/cervical spine without
acute traumatic injuries. Symptoms likely secondary to acute UTI. Given significant weakness and frequent falls�feel patient would benefit from admission to hospital for IV antibiotics and IV fluids. This was discussed with both patient's aide at
his bedside along with his daughter on the phone who are both agreeable with plan. Patient given Rocephin in ED and admitted to hospital service in stable condition.
Chronic conditions affecting care:
History CVA with expressive aphasia and right-sided hemiplegia
Acute Exacerbation and/or Progression of Chronic Illness:
Acute UTI
*Radiology
Radiology exam reviewed: preliminary read by ED provider (Chest x-ray reviewed by pa-poor inspiration-no focal infiltrates) and radiology read reviewed
*Pulse Oximetry
Patient hypoxic: no
*EKG
Interpreted by ED Provider?: Yes
EKG Intrepretation Date: 11/03/24
Interpretation: abnormal
Comparison EKG: changes noted
Heart Rate: 81
Rate: normal
Rhythm: sinus arrhythmia
[place]: left axis deviation
Interval: normal QT interval
QRS Pattern: low voltage
Ischemia: non-specific ST changes (T wave flattening in inferior leads)
*[employer] Interpretation
Rate: normal
Interpretation: normal
Heart Rate: 90
Rhythm: sinus
*Critical Care Note
Total Time (30-74mins, 75-104mins- exclusive of procedures): Not Applicable
Data Reviewed
Review of Other/Old Records Reveals: Labs (Urine culture from 01/07/2024-pansensitive)
Patient Management
Discussion with other providers: Hospitalist
Escalation/DeEscalation of care consider admission/obs:
Admit for IV antibiotics, IV fluid
ED Attending Note
-
Portions of this chart may have been created with voice recognition software.� Occasional wrong word or��sound alike� substitutions may have occurred due to the inherent limitations of voice recognition software.
Discharge Plan
Departure
Patient Disposition: Admit
Date of Disposition: 11/03/24
Time of Disposition: 20:59
Presentation/result/management discussed w/ accepting MD/DO: Hospitalist
Discharge Problem:
Acute UTI, Generalized weakness
Interventions
Interventions:
*Risk Screen - Suicide Last Done: 11/03/24 16:05
*General Assessment Last Done: 11/03/24 16:05
*Neglect/Abuse Screening Last Done: 11/03/24 16:05
*ED- Fall Risk Assessment Last Done: 11/03/24 16:05
*ED COVID-19 Vaccine History Last Done: 11/03/24 16:05
*Nursing Disposition Last Done: 11/03/24 23:14
ED-Musculoskeletal Assessment Last Done: 11/03/24 16:23
ED- Neurological Assessment Last Done: 11/03/24 16:23
ED-Skin Assessment Last Done: 11/03/24 16:23
Discharge Date and Time
Discharge Date/Time: 11/03/24 23:14
[2024-11-03] MEDS: NSS 1000 IV (19:07)
[2024-11-03 19:10] LABS: % Basophils 0.2 % (0-2); % Eosinophils 0.1 % (0-6); % Immature Granulocytes 0.4 % (0-0.5); % Lymphocytes 9.5 % (20.5-51.1); % Monocytes 8.2 % (1.7-9.3); % Neutrophils 81.6 % (42.2-75.2); Absolute Immature Granulocytes 0.1 10^3/uL (0-0.05); Absolute Lymphocytes 1.2 10^3/uL (1.2-3.4); Absolute Monocytes 1.1 10^3/uL (0.1-0.6); Absolute Neutrophils 10.4 10^3/uL (1.4-6.5); Hematocrit 34.4 % (39.0-52.0); Hemoglobin 11.6 g/dL (13.0-18.0); Mean Corp Hgb Conc. 33.7 g/dL (33.0-37.0); Mean Corpuscular Hgb 29.4 pg (27.0-31.0); Mean Corpuscular Volume 87.3 fL (80.0-94.0); Mean Platelet Volume 9.3 fL (7.4-10.4); Nucleated Red Blood Cells % 0 % (-); Platelet Count 359 10^3/uL (130-400); Red Blood Cell Count 3.94 10^6/uL (4.70-6.10); Red Cell Dist. Width 13.3 % (11.5-14.5); White Blood Cell Count 12.8 10^3/uL (4.8-10.8)
[2024-11-03 19:29] LABS: Urine Albumin 2+ (Neg - Trace); Urine Bilirubin Negative (Negative); Urine Character Clear (Clear); Urine Color Yellow; Urine Glucose Negative (Negative); Urine Ketone Negative (Negative); Urine Leukocyte 3+ (Negative); Urine Nitrite Positive (Negative); Urine Occult Blood 2+ (Negative); Urine Urobilinogen Negative (Neg - 1+)
[2024-11-03 19:35] LABS: ALT (SGPT) 25 U/L (0-50); AST (SGOT) 35 U/L (17-59); Albumin 3.7 g/dl (3.5-5.0); Alkaline Phosphatase 79 U/L (38-126); Blood Urea Nitrogen 27 mg/dl (9-20); Carbon Dioxide 24 mmol/L (22-30); Chloride 105 mmol/L (98-107); Glucose 133 mg/dl (70-99); Potassium 4.3 mmol/L (3.5-5.1); Sodium 141 mmol/L (135-145); Total Bilirubin 1.2 mg/dl (0.2-1.3); Total Protein 7.3 g/dl (6.3-8.2); eGFR > 60.00
[2024-11-03 19:41] LABS: Urine Bacteria Many (Negative); Urine Red Blood Cell 0-2 /HPF (0-2); Urine White Cell 60-70 /HPF (0-5)
[2024-11-03] MEDS: ROCEPHIN 1000 MG IV (21:09)
--- NOTE | 2024-11-03 21:43 | HPS.HSE ---
Family Physician
-
Family Physician: NOT KNOW UNKNOWN - PT DOES
Chief Complaint
-
recurrent falls
History of Present Illness
Patient is a 69-year-old male with past medical history significant for hyperlipidemia, Hx CVA, hemiplegia and colon cancer who presented to [facility] ED for evaluation of generalized weakness and recurrent falls over the past 3 days.
Patient not able to provide much history. Daughter spoke with ED staff and reported patient with 24-hour caregiver, he generally is able to transfer with assistance, however, over past 3 days he has been unable to do so. He has sustained few minor
falls with unknown head strike. No reported change in mental status. No known fever, chills or cough.
Medical History
Past Medical History
Past Medical History: Reports Other
Additional Past Medical History:
Hyperlipidemia
Hx CVA
Hemiplegia
expressive aphasia
Colon cancer
Past Surgical History: Reports Other
Additional Past Surgical History:
Small bowel resection
Social History
Unable to obtain full social history at this time due to: Dementia
Living: With Family
Family History
Family History: Unable to Obtain
Allergies / Home Medications
Allergies reflects when Allergies were last updated in [employer].
Home Medications with original date entered in [employer]
Allergy/Medication List:
Allergies
Allergy/AdvReac Type Severity Reaction Status Date / Time
meperidine Allergy Unknown Verified 11/03/24 16:16
morphine Allergy Unknown Verified 11/03/24 16:16
Home Medications
aspirin 81 mg tablet,delayed release 81 mg PO DAILY 01/07/24
atorvastatin 40 mg tablet (Lipitor) 40 mg PO HS 01/07/24
citalopram 20 mg tablet (Celexa) 20 mg PO DAILY 01/07/24
acetaminophen 325 mg tablet (Tylenol) 650 mg PO Q6H PRN pain 11/03/24
docusate sodium 100 mg capsule (Colace) 100 mg PO DAILY 11/03/24
magnesium hydroxide 400 mg/5 mL oral suspension (Milk of Magnesia) 30 ml PO DAILY PRN constipation 11/03/24
polyethylene glycol 3350 17 gram/dose oral powder 17 g PO DAILY 11/03/24
Review of Systems
-
Unable to obtain full review of systems at this time due to: Dementia
Physical Exam
Vital Signs
Vital Signs
Temp Pulse Resp BP Pulse Ox
98.5 F 79 21 114/58 96
11/03/24 16:17 11/03/24 21:00 11/03/24 21:00 11/03/24 21:00 11/03/24 16:17
Physical Exam
General: Well Developed, Well Nourished, No Apparent Distress, Comfortable and Slurred Speech
HEENT: NormoCephalic, Moist mucous membranes, Atraumatic, Leon Conjunctivae, Nose Appears Normal and Ears Appear Normal
Respiratory: Clear and Non Labored Respirations
Cardiac: S1/S2 and Regular Rhythm
Breast: Deferred by me
GI: Soft, Non Tender, Non Distended and Normal Bowel Sounds; No Organomegaly
Rectal: Deferred by Provider
Genito-urinary: Deferred by me
Musculoskeletal: No Clubbing, No Cyanosis, Edema, Left Lower Extremity (trace) and Edema, Right Lower Extremity (trace)
Skin: IV/Catheter Site; No Rash
Neuro: Awake, Alert and Nonfocal/grossly intact
Psych: Calm
Laboratory Results
-
11/03/24 18:48
11/03/24 18:48
Laboratory Results
Total Bilirubin 1.2 mg/dl (0.2-1.3) 11/03/24 18:48
AST 35 U/L (17-59) 11/03/24 18:48
ALT 25 U/L (0-50) 11/03/24 18:48
Alkaline Phosphatase 79 U/L (38-126) 11/03/24 18:48
Data Reviewed
-
CT Scan: Report Reviewed by me (C-Spine: No acute osseous injury of the cervical spine identified. Multilevel degenerative disc disease. Small hypodense right thyroid lesion likely a benign nodule. Nonurgent thyroid ultrasound recommended if not
previously evaluated) and Other (Head: No acute intracranial abnormality noted. Evolution of a large old left MCA distribution infarct. Moderate periventricular small vessel ischemic disease. Stable. Mild atrophy. Stable)
Medical Tests (Nuc Med, Echo, EKG etc): Report Reviewed by me (EKG: NORMAL SINUS RHYTHM WITH SINUS ARRHYTHMIA LEFT AXIS DEVIATION LOW VOLTAGE QRS INFERIOR INFARCT (CITED ON OR BEFORE 07-JAN-2024))
Lab Data: Labs Reviewed by me (WBC 12.8, Neut 81.6, UA indicative of UTI)
Impression/Plan
-
IMPRESSION/PLAN:
#UTI
WBC 12.8, Neut 81.6
UA: indicative of UTI
Urine Cx: pending
- Admit to med/surg
- IV antiboitics
- supportive care
#recurrent falls
Head: No acute intracranial abnormality noted.
Evolution of a large old left MCA distribution infarct.
Moderate periventricular small vessel ischemic disease. Stable.
Mild atrophy. Stable
C-spine: No acute osseous injury of the cervical spine identified.
Multilevel degenerative disc disease.
Small hypodense right thyroid lesion likely a benign nodule. Nonurgent thyroid ultrasound recommended if not previously evaluated
- fall risk
- consult PT
#Hyperlipidemia
- continue atorvastatin
#Hx CVA
#Hemiplegia
#expressive aphasia
- continue aspirin
#depression/anxiety
- continue citalopram
#Colon cancer
Code status: full code
DVT prophylaxis: Lovenox Sq
--- NOTE | 2024-11-03 22:13 | W.PN.UPDATE ---
Update Note
Progress Note Update
Patient seen in conjunction with BRYCE. I agree with the findings on history and physical. I concur with his assessment and plan.
Briefly, patient is a 69-year-old with past medical history significant for CVA 2017 with residual right-sided hemiplegia and expressive aphasia, history of prior urinary tract infections, colon cancer, depression presenting to the emergency
department with generalized weakness and recent falls at home. It appears that he is able to transfer with help at baseline but has been having difficulty doing so more recently. Patient unable to provide history. The has not had any fevers or
chills currently denies any abdominal pain nausea or vomiting no urinary symptoms. However his urine will be asked to treat Was positive in the emergency department. He also appears slightly dehydrated.
Here he was afebrile, blood pressure was stable at 114/60 with a pulse of 79 and oxygen saturation was 96% on room air. ECG shows a normal sinus rhythm at a rate of 81. He had leukocytosis to 12.8 otherwise CBC was normal. Electrolytes
BUN/creatinine were actually normal. UA was markedly positive. CT of the head was negative and C-spine was also negative.
Assessment and plan
UTI - recurrent uti, given h/o cva likely has mild incontinence/retention. Prior imaging negative for stones. He is afebrile and w/o abdominal pain/n/v.
- admit to med surg
- urine culture pending
- IV ceftriaxone
- if febrile culture and consider imaging for urogenital anomaly
- s/p IV fluids in ED, monitor
AMB dysfunction - h/o CVA w/ residual right hemiplagia and expressive aphasia, no new focal deficits with generalized weakness
- PT evaluation
CVA
- continue aspirin, statin
- regular diet
DVT PPX - lovenox sq
code status - full code
--- NOTE | 2024-11-03 23:15 | PTCARENOTE ---
Pt admitted to room 2126 from ED via stretcher, severe expressive and receptive aphasia, R sided hemiplegia 2/2 previous CVA. Swallow screening done and able to tolerate thins. Speech consulted.
[2024-11-04 07:32] VITALS: BP 96/51
--- NOTE | 2024-11-04 08:04 | W.PN.HOSP.TC ---
Today's Communication/Plan
-
see bold
Assessment / Plan
Assessment / Plan
Gen: NAD, Awake and alert, NCAT
Eyes: EOMI, PERRLA, no scleral icterus.
Neck: supple.
CV: RRR, +S1/S2, no m/r/g.
Resp: CTAB, no rales, wheezes, or rhonchi.
Abd: +BS, soft, NT, ND
Skin: No rashes.
Neuro: CN 2-12 intact, R-hemiparesis
Psych: Normal mood and affect.
CT brain: No acute intracranial abnormality noted. Evolution of a large old left MCA distribution infarct. Moderate periventricular small vessel ischemic disease. Stable. Mild atrophy. Stable.
CXR: No acute disease of the chest
Sepsis (POA) due to UTI:
-a/e/b fever, leukocytosis, source urine
-recurrent
-given h/o cva likely has mild incontinence/retention. Prior imaging negative for stones. Afebrile and w/o abdominal pain/n/v on admission.
-received IVFs on admission
-cont Rocephin
-follow UCx
Ambulatory dysfunction:
-h/o CVA with residual R hemiplegia and expressive aphasia, cont ASA/statin
-PT/OT
FULL/Lovenox
Anticipated Discharge: Within 24 hours
Subjective/Interval History
-
Date of Service: November 04, 2024
Expressive aphasia at baseline, cannot answer questions.
Objective Data
-
Labs:
Laboratory Results
11/04/24
07:41
WBC Pending
Hgb Pending
Hct Pending
Plt Count Pending
Sodium Pending
Potassium Pending
Chloride Pending
Carbon Dioxide Pending
BUN Pending
Creatinine Pending
Glucose Pending
Calcium Pending
Vital Signs:
Vital Signs
Temp Pulse Resp BP Pulse Ox
97.9 F 61 17 96/51 95
11/04/24 07:32 11/04/24 07:32 11/04/24 07:32 11/04/24 07:32 11/04/24 07:32
I&O
11/03/24 11/04/24 11/05/24
06:59 06:59 06:59
Intake Total 350 / 350
Balance 350 / 350
[2024-11-04 08:19] LABS: Hematocrit 31.6 % (39.0-52.0); Hemoglobin 10.5 g/dL (13.0-18.0); Mean Corp Hgb Conc. 33.2 g/dL (33.0-37.0); Mean Corpuscular Hgb 29.4 pg (27.0-31.0); Mean Corpuscular Volume 88.5 fL (80.0-94.0); Mean Platelet Volume 10.4 fL (7.4-10.4); Platelet Count 324 10^3/uL (130-400); Red Blood Cell Count 3.57 10^6/uL (4.70-6.10); Red Cell Dist. Width 13.2 % (11.5-14.5); White Blood Cell Count 9.2 10^3/uL (4.8-10.8)
[2024-11-04 08:50] LABS: Blood Urea Nitrogen 20 mg/dl (9-20); Calcium 8.3 mg/dl (8.4-10.2); Carbon Dioxide 23 mmol/L (22-30); Chloride 107 mmol/L (98-107); Estimated Creatinine Clearance 94 ml/min; Glucose 98 mg/dl (70-99); Potassium 3.9 mmol/L (3.5-5.1); Sodium 139 mmol/L (135-145); eGFR > 60.00
[2024-11-04] MEDS: MIRALAX PO (10:33)
[2024-11-04] MEDS: ASPIR LOW (ENTERIC COATED) 81 MG PO (10:33)
[2024-11-04] MEDS: CELEXA 20 MG PO (10:33)
[2024-11-04] MEDS: COLACE 100 MG PO (10:33)
--- NOTE | 2024-11-04 12:13 | CM ---
CM spoke with son/Mundo
Both son and dtr are joint POAs
Pt resides alone in a 2SH with ramp entrance, 1st floor set up
Pt has 24/7 caregiver through [employer] ([phone]) funded through [address] waiver program
Pt has hemiplegia and expressive aphasia
Per son, pt alert to family and place
Pt is non-ambulatory, able to stand, pivot, and transfer independently into scooter
[employer] provided rounds the clock personal care assistance and home maintenance
Pt has hx at [facility]
Pt resides at [address] [facility] [facility]
Address updated with admissions
PCP- unknown
Rx- [facility]
Per son, pt can return back to 24/7 caregivers at 1 person assist
if 2 person assist or more, will need SNF placement
Requesting [facility] area and good experience at [facility]
Awaiting outcome of PT eval
Pt is OBS- DOE verbally reviewed over phone
Copy left bedside
Discharge Disposition- anticipate home, watch for possible higher level needs
[2024-11-04 13:53] VITALS: BP 112/63; PULSE 73
--- NOTE | 2024-11-04 13:55 | PTOTSP ---
ST Acute Care Evaluation
Pt currently presents with fairly functional oropharyngeal swallowing parameters. Pt is at an increased risk for aspiration due to his impulsivity with PO intake. Pt would be safe for a regular solids and thin liquids diet; however, pt expressed a
preference for modified solid diet consistencies so that he could be as independent as possible with self-feeding.
Recommendations:
- Change diet consistency to soft bite sized solids; continue with thin liquids and meds whole or crushed in puree as needed.
- General aspiration precautions: HOB upright during PO intake; eat/drink at a SLOW RATE; alternate solids/liquids.
- Please have pt WASH HANDS prior to PO intake, if he is going to be self finger-feeding as opposed to using his utensils.
- ASSISTANT OPERATIONS MANAGER to f/u briefly to ensure tolerance of modified diet consistencies and to ensure pt is recalling and implementing aspiration precaution compensatory strategies.
[2024-11-04 15:26] VITALS: BP 103/53
--- NOTE | 2024-11-04 15:34 | CM ---
Addendum entered by Emily Dumont RN 11/05/24 15:50:
Spoke with patient's caregiver at patient's home phone #: patient's PCP is Aurelio Montesingham, ph [phone].
PCP info forwarded to Veronika YOO. Patient is accepted by [facility].
Original Note:
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 PT recommends HH. Seen by ST Terri araujo.
Spoke with patient's son Mundo and daughter Devora; both agree to d/c home with [facility] for PT/OT when medically ready. Mundo says that his sister Devora handles the patient's care details. Devora says the caregiver is already present in the home and can
resume service if discharged tomorrow. She chooses [facility] and daughter is aware he will not be able to be seen until later in the week - she is ok with that and wishes her to stay with [facility]. Mundo says his may be delegated to provide
transport home if d/c is tomorrow.
Referral to FREDO Banda; the patient can be seen later in the week.
Plan home with [facility], with resumption of caregivers, with family.
[2024-11-04] MEDS: LOVENOX 40 MG SC (18:31)
[2024-11-04] MEDS: LIPITOR 40 MG PO (20:12)
[2024-11-04] MEDS: ROCEPHIN 1000 MG IV (20:12)
[2024-11-04] MEDS: STERILE WATER FOR INJECTION 10 ML IV (20:12)
[2024-11-04 23:22] VITALS: BP 105/63
[2024-11-05 07:38] VITALS: BP 92/51
--- NOTE | 2024-11-05 08:11 | W.PN.HOSP.TC ---
Today's Communication/Plan
-
See bold
Assessment / Plan
Assessment / Plan
Gen: NAD, Awake and alert, NCAT
Eyes: EOMI, PERRLA, no scleral icterus.
Neck: supple.
CV: Remains RRR, +S1/S2, no m/r/g.
Resp: Remains CTAB, no rales, wheezes, or rhonchi.
Abd: Remains +BS, soft, NT, ND
Skin: No rashes.
Neuro: CN 2-12 intact, R-hemiparesis
Psych: Normal mood and affect.
CT brain: No acute intracranial abnormality noted. Evolution of a large old left MCA distribution infarct. Moderate periventricular small vessel ischemic disease. Stable. Mild atrophy. Stable.
CXR: No acute disease of the chest
Sepsis (POA) due to UTI:
-a/e/b fever, leukocytosis, source urine
-recurrent
-one fever on admission, none since
-given h/o cva likely has mild incontinence/retention. Prior imaging negative for stones. No abdominal pain/n/v on admission.
-received IVFs on admission
-leukocytosis has resolved
-cont Rocephin
-follow UCx
Ambulatory dysfunction:
-h/o CVA with residual R hemiplegia and expressive aphasia, cont ASA/statin
-PT/OT
FULL/Lovenox
Anticipated Discharge: Within 24 hours
Subjective/Interval History
-
Date of Service: November 05, 2024
Baseline expressive aphasia.
Objective Data
-
Vital Signs:
Vital Signs
Temp Pulse Resp BP Pulse Ox
98.4 F 55 17 92/51 96
11/05/24 07:38 11/05/24 07:38 11/05/24 07:38 11/05/24 07:38 11/05/24 07:38
I&O
11/04/24 11/05/24 11/06/24
06:59 06:59 06:59
Intake Total 350 / 350 1080 / 1080
Output Total 950 / 950
Balance 350 / 350 130 / 130
[2024-11-05] MEDS: ASPIR LOW (ENTERIC COATED) 81 MG PO (08:36)
[2024-11-05] MEDS: CELEXA 20 MG PO (08:36)
[2024-11-05] MEDS: MIRALAX PO (08:37)
[2024-11-05] MEDS: COLACE PO (08:37)
[2024-11-05 15:19] VITALS: BP 114/57
[2024-11-05] MEDS: LOVENOX 40 MG SC (17:39)
[2024-11-05] MEDS: ROCEPHIN 1000 MG IV (21:03)
[2024-11-05] MEDS: STERILE WATER FOR INJECTION 10 ML IV (21:03)
[2024-11-05] MEDS: LIPITOR 40 MG PO (21:04)
[2024-11-05 23:23] VITALS: BP 105/59
--- NOTE | 2024-11-06 02:43 | PTCARENOTE ---
Patient resting all shift he has no complaints or concerns, skin intact, patient uses urinal, no BM this shift, call vigil with in reach.
[2024-11-06 08:09] VITALS: BP 101/60
[2024-11-06] MEDS: MIRALAX 17 GRAMS PO (08:36)
[2024-11-06] MEDS: COLACE 100 MG PO (08:36)
[2024-11-06] MEDS: ASPIR LOW (ENTERIC COATED) 81 MG PO (08:36)
[2024-11-06] MEDS: CELEXA 20 MG PO (08:36)
--- NOTE | 2024-11-06 09:45 | W.PN.HOSP.TC ---
Today's Communication/Plan
-
see bold
Assessment / Plan
Assessment / Plan
Gen: NAD, Awake and alert, NCAT
Eyes: EOMI, PERRLA, no scleral icterus.
Neck: supple.
CV: Continues to remain RRR, +S1/S2, no m/r/g.
Resp: Continues to remain CTAB, no rales, wheezes, or rhonchi.
Abd: Continues to remain +BS, soft, NT, ND
Skin: No rashes.
Neuro: CN 2-12 intact, R-hemiparesis
Psych: Normal mood and affect.
11/03/24 19:22 Urine Urine Culture - Final
Klebsiella pneumoniae
11/04/24 01:32 Nose MRSA Screen - Final
Staph aureus MRSA
CT brain: No acute intracranial abnormality noted. Evolution of a large old left MCA distribution infarct. Moderate periventricular small vessel ischemic disease. Stable. Mild atrophy. Stable.
CXR: No acute disease of the chest
Sepsis (POA) due to UTI:
-a/e/b fever, leukocytosis, source urine
-recurrent
-one fever on admission, none since
-given h/o cva likely has mild incontinence/retention. Prior imaging negative for stones. No abdominal pain/n/v on admission.
-received IVFs on admission
-leukocytosis has resolved
-stop Rocephin, switch to Keflex to complete 7 days total antibiotic therapy
Ambulatory dysfunction:
-h/o CVA with residual R hemiplegia and expressive aphasia, cont ASA/statin
-PT/OT
FULL/Lovenox
Medically cleared for discharge. Case management aware.
Anticipated Discharge: Today
Subjective/Interval History
-
Date of Service: November 06, 2024
Baseline expressive aphasia.
Objective Data
-
Vital Signs:
Vital Signs
Temp Pulse Resp BP Pulse Ox
98.6 F 71 16 101/60 94
11/06/24 08:09 11/06/24 08:09 11/06/24 08:09 11/06/24 08:09 11/06/24 08:09
I&O
11/05/24 11/06/24 11/07/24
06:59 06:59 06:59
Intake Total 1080 / 1080 960 / 960
Output Total 950 / 950 775 / 775
Balance 130 / 130 185 / 185
--- NOTE | 2024-11-06 10:05 | CM ---
Addendum entered by Lashon Collins 11/06/24 14:55:
patient address is [address] [place] [address] [place] [address]. Patient has a ramp to front door, aide will be in place after 9am. CM will update patient physician. transfer forms were completed and placed on chart.
Addendum entered by Lashon Collins 11/06/24 10:53:
Patient given IMM form and made aware of possible discharge tomorrow.
Original Note:
Patient now INP, CM spoke with patient daughter Devora and the agency that does her aides is not able to fill the aid position until wednesday at 9M. CM updated physician and will complete ambulance transfer forms. Patient daughter email is
[email or web address], CM will send IMM. CM will continue to follow for discharge planning needs.
Plan; transfer to home with [facility] and aide tomorrow
--- NOTE | 2024-11-06 10:11 | VNURNOTE ---
[facility] liaison spoke to pricilla Lozoya. Patients current PCP is through [facility]- Dr. Narayan Davey [phone]. The doctor makes a house call every 3 months.
[2024-11-06] MEDS: KEFLEX 500 MG PO ×4 (10:14→21:24)
[2024-11-06 15:20] VITALS: BP 95/54
[2024-11-06] MEDS: LOVENOX 40 MG SC (17:25)
[2024-11-06] MEDS: LIPITOR 40 MG PO (21:24)
[2024-11-06 23:15] VITALS: BP 102/44
[2024-11-07 07:05] VITALS: BP 113/59
[2024-11-07] MEDS: KEFLEX 500 MG PO ×2 (08:34→12:02)
[2024-11-07] MEDS: ASPIR LOW (ENTERIC COATED) 81 MG PO (08:34)
[2024-11-07] MEDS: COLACE 100 MG PO (08:35)
[2024-11-07] MEDS: CELEXA 20 MG PO (08:35)
[2024-11-07] MEDS: MIRALAX 17 GRAMS PO (08:35)
--- NOTE | 2024-11-07 09:33 | W.PN.HOSP.TC ---
Today's Communication/Plan
-
d/c
Assessment / Plan
Assessment / Plan
Gen: NAD, Awake and alert, NCAT
Eyes: EOMI, PERRLA, no scleral icterus.
Neck: supple.
CV: RRR, +S1/S2, no m/r/g.
Resp: CTAB, no rales, wheezes, or rhonchi.
Abd: +BS, soft, NT, ND
Skin: No rashes.
Neuro: CN 2-12 intact, R-hemiparesis
Psych: Normal mood and affect.
11/03/24 19:22 Urine Urine Culture - Final
Klebsiella pneumoniae
11/04/24 01:32 Nose MRSA Screen - Final
Staph aureus MRSA
CT brain: No acute intracranial abnormality noted. Evolution of a large old left MCA distribution infarct. Moderate periventricular small vessel ischemic disease. Stable. Mild atrophy. Stable.
CXR: No acute disease of the chest
Sepsis (POA) due to UTI:
-a/e/b fever, leukocytosis, source urine
-recurrent
-one fever on admission, none since
-given h/o cva likely has mild incontinence/retention. Prior imaging negative for stones. No abdominal pain/n/v on admission.
-received IVFs on admission
-leukocytosis has resolved
-was on Rocephin, now switched to Keflex to complete 7 days total antibiotic therapy
Ambulatory dysfunction:
-h/o CVA with residual R hemiplegia and expressive aphasia, cont ASA/statin
-PT/OT
FULL/Lovenox
Remains medically cleared for discharge since 11/06/24AM. Case management aware.
Total time spent on d/c = 31 min. This included today's physical exam, progress note, review of laboratory and diagnostic data, preparation of discharge documents and prescriptions, and discussions about the pt's hospital course and discharge plan
with the patient and other medical records library professor involved in the patient's care.
Anticipated Discharge: Today
Subjective/Interval History
-
Date of Service: November 07, 2024
Patient with baseline expressive aphasia.
Objective Data
-
Vital Signs:
Vital Signs
Temp Pulse Resp BP Pulse Ox
98.6 F 77 16 113/59 93
11/07/24 07:05 11/07/24 07:05 11/07/24 07:05 11/07/24 07:05 11/07/24 07:05
I&O
11/06/24 11/07/24 11/08/24
06:59 06:59 06:59
Intake Total 960 / 960 720 / 720
Output Total 775 / 775 825 / 825
Balance 185 / 185 -105 / -105
--- NOTE | 2024-11-07 09:57 | CM ---
CM spoke with patient daughter and confirmed plan for transfer to home. Aides in place, physician confirmed discharge and plan is for patient to leave via ambulance. IMM completed and emailed to patient daughter, copy placed on chart.
Transportation forms completed and on chart. CM will continue to follow for discharge planning needs.
Plan; home with [facility]/aides in place
--- NOTE | 2024-11-07 13:45 | W.DCSUMMARY ---
Discharge Summary
Discharge Data
Date of Admission: 11/06/24
Date of Discharge: 11/07/24
-
Pending Results: No
Hospital Course
Primary diagnoses:
Sepsis due to acute urinary tract infection
Secondary diagnoses:
Ambulatory dysfunction
h/o stroke with residual R hemiplegia and expressive aphasia
Consultants:
None
Imaging:
CT brain: No acute intracranial abnormality noted. Evolution of a large old left MCA distribution infarct. Moderate periventricular small vessel ischemic disease. Stable. Mild atrophy. Stable.
CXR: No acute disease of the chest
Hospital course: 69-year-old male who presented with a chief complaint of recurrent falls as outlined in the H&P done on admission. He was found to be septic due to urinary tract infection. He has a history of recurrent UTIs. He had 1 fever on
admission and none thereafter. On admission he had no abdominal pain, nausea, vomiting. He received IV fluids on admission. He had a leukocytosis which resolved. He was treated with IV Rocephin. His urine culture grew Klebsiella pneumoniae and
based on sensitivities he was transitioned to Keflex to complete 7 total days of antibiotic therapy.
Discharge Plan
-
Patient Disposition: Home (Routine Discharge)
Discharge Diagnosis/Procedures: Sepsis due to acute urinary tract infection
Condition: Good
Diet: Other diet
Additional Diets: IDDSI-6, soft and bite sized, thin liquids
Activity: Other activity
Additional Activity: as prior to admission
Driving Restrictions: No driving
Blood Work: BMP and CBC in 1 week, prescription from PCP
Referrals:
UNKNOWN - PT DOES,NOT KNOW [Family Provider] - in less than 1 week
Prescriptions:
New
cephalexin 500 mg Capsule
500 mg PO QID Qty: 12 0RF
Continued
citalopram [Celexa] 20 mg Tablet
20 mg PO DAILY
atorvastatin [Lipitor] 40 mg Tablet
40 mg PO HS
aspirin 81 mg Tablet,Delayed Release (Dr/Ec)
81 mg PO DAILY
acetaminophen [Tylenol] 325 mg Tablet
650 mg PO Q6H PRN (Reason: pain)
Rx Instructions:
do not exceed 3 grams in 24 hours
magnesium hydroxide [Milk of Magnesia] 400 mg/5 mL Suspension
30 ml PO DAILY PRN (Reason: constipation)
docusate sodium [Colace] 100 mg Capsule
100 mg PO DAILY
polyethylene glycol 3350 17 gram/dose Powder
17 g PO DAILY
Rx Instructions:
mix powder in 6 oz fluid
Discharge Orders:
Discharge Patient (As Directed); Ordered 11/07/24
Ordered By: Brian Lindsay
Discharge Date and Time
Print Language: GREENLANDIC
[2024-11-07 13:47] VITALS: BP 102/60
--- NOTE | 2024-11-07 13:57 | PTCARENOTE ---
Patient discharged home, transported via [facility]. This RN reviewed discharge medications with patient, discharge packet placed in belongings bag. IV removed, hygiene/bed bath provided prior to DC.
== END 2024-11-07 14:10 | disposition home health service (06) | DRG 872 ==
LOC: 2 NORTH 07:46
PROVIDERS: Nurse Practitioner Family; Physician Assistant; ADMITTING PHYSICIAN Internal Medicine; ATTENDING PHYSICIAN Internal Medicine; EMERGENCY PHYSICIAN Emergency Medicine
DX: A41.9 Sepsis, unspecified organism (principal); N39.0 Urinary tract infection, site not specified; I69.351 Hemiplegia and hemiparesis following cerebral infarction affecting right dominant side; F03.94 Unspecified dementia, unspecified severity, with anxiety; F03.93 Unspecified dementia, unspecified severity, with mood disturbance; I69.320 Aphasia following cerebral infarction; Z87.440 Personal history of urinary (tract) infections; B96.1 Klebsiella pneumoniae [K. pneumoniae] as the cause of diseases classified elsewhere; R29.6 Repeated falls; K59.00 Constipation, unspecified; E78.00 Pure hypercholesterolemia, unspecified; Z88.5 Allergy status to narcotic agent; Z79.82 Long term (current) use of aspirin; F32.A Depression, unspecified; Z79.899 Other long term (current) drug therapy; Z85.038 Personal history of other malignant neoplasm of large intestine; E07.9 Disorder of thyroid, unspecified
CPT/HCPCS: 51701; 70450; 71046; 72125; 80048; 80053; 81003; 81015; 85025; 85027; 87070; 87077; 87086; 87147; 87186; 92526; 92610; 93005; 96361; 96374; 97163; 97530; 99285

== ENCOUNTER 2025-07-11 19:03 | Inpatient (IN) | payer MEDICARE, OTHER, SELFPAY ==
[2025-07-11] VITALS (9 sets, daily range): BP systolic 87–134; BP diastolic 48–78; BMI 30.5
[2025-07-11 15:43] LABS: Hematocrit 30.7 % (39.0-52.0); Hemoglobin 9.8 g/dL (13.0-18.0); Mean Corp Hgb Conc. 31.9 g/dL (33.0-37.0); Mean Corpuscular Volume 91.6 fL (80.0-94.0); Nucleated Red Blood Cells % 0 % (-); Platelet Count 277 10^3/uL (130-400); Red Cell Dist. Width 13.2 % (11.5-14.5)
[2025-07-11 15:52] LABS: ALT (SGPT) 14 U/L (0-50); AST (SGOT) 25 U/L (17-59); Albumin 3.8 g/dl (3.5-5.0); Alkaline Phosphatase 52 U/L (38-126); Blood Urea Nitrogen 21 mg/dl (9-20); Calcium 8.5 mg/dl (8.4-10.2); Carbon Dioxide 30 mmol/L (22-30); Chloride 108 mmol/L (98-107); Glucose 101 mg/dl (70-99); Potassium 4.2 mmol/L (3.5-5.1); Sodium 139 mmol/L (135-145); Total Protein 6.7 g/dl (6.3-8.2); eGFR > 60.00
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
--- NOTE | 2025-07-11 15:55 | ED.GENMED ---
History of Present Illness
General
Chief Complaint: Bowel Problem
Time Seen by Provider: 07/11/25 15:52
History of Present Illness
History of Present Illness:
FOCUSED PAST MEDICAL HISTORY
- History of stroke with right-sided residual deficits and expressive aphasia
REVIEW OF OLD RECORDS
- The patient was admitted with UTI sepsis in October 2024
RADIOLOGY
-
EKG
-
LABS
- Blood count normal, hemoglobin 9.8 and was 10.5 in October of this year. Chemistries unremarkable
UPDATE
-
Past History
Past History
ED Past Medical History: CVA and Hypercholesterolemia
ED Past Surgical History: Other
Social History
Tobacco: Other
Alcohol: Other
Drug: None
Personal: Other
Living: with family
Employment: Retired
Family History
Family History: Unable to obtain
Course
Orders/Labs/Results
Orders:
Orders
07/11/25 15:11
Cardiac Monitoring- Treatment ONCE
07/11/25 15:30
Type+Screen Urgent
Complete Blood Count/With Diff Urgent
Comprehensive Metabolic Panel Urgent
Abnormal Lab Results
07/11/25
15:30
RBC 3.35 L 10^6/uL
(4.70-6.10)
Hgb 9.8 L g/dL
(13.0-18.0)
Hct 30.7 L %
(39.0-52.0)
MCHC 31.9 L g/dL
(33.0-37.0)
Lymphocytes % 19.7 L %
(20.5-51.1)
Chloride 108 H mmol/L
(98-107)
BUN 21 H mg/dl
(9-20)
Glucose 101 H mg/dl
(70-99)
07/11/25 15:30
07/11/25 15:30
Vital Signs
Initial and Last Documented VS:
Initial Vital Signs
Temp Pulse Resp BP Pulse Ox
36.8 C 83 19 113/70 98
07/11/25 15:05 07/11/25 15:05 07/11/25 15:05 07/11/25 15:05 07/11/25 15:05
Last Documented Vital Signs
Temp Pulse Resp BP Pulse Ox
36.8 C 83 19 113/70 98
07/11/25 15:05 07/11/25 15:05 07/11/25 15:05 07/11/25 15:05 07/11/25 15:55
*Pulse Oximetry
SaO2: 98
Oxygen Mode of Delivery: Room air
ED Attending Note
-
Portions of this chart may have been created with voice recognition software.� Occasional wrong word or��sound alike� substitutions may have occurred due to the inherent limitations of voice recognition software.
Discharge Plan
Departure
Prescriptions:
No Action
citalopram [Celexa] 20 mg Tablet
20 mg PO DAILY
atorvastatin [Lipitor] 40 mg Tablet
40 mg PO HS
aspirin 81 mg Tablet,Delayed Release (Dr/Ec)
81 mg PO DAILY
acetaminophen [Tylenol] 325 mg Tablet
650 mg PO Q6H PRN (Reason: pain)
Rx Instructions:
do not exceed 3 grams in 24 hours
magnesium hydroxide [Milk of Magnesia] 400 mg/5 mL Suspension
30 ml PO DAILY PRN (Reason: constipation)
docusate sodium [Colace] 100 mg Capsule
100 mg PO DAILY
polyethylene glycol 3350 17 gram/dose Powder
17 g PO DAILY
Rx Instructions:
mix powder in 6 oz fluid
cephalexin 500 mg Capsule
500 mg PO QID Qty: 12 0RF
Referrals:
UNKNOWN - PT DOES,NOT KNOW [Family Provider]
Interventions
Interventions:
*Risk Screen - Suicide Last Done: 07/11/25 15:05
*General Assessment Last Done: 07/11/25 15:05
*Neglect/Abuse Screening Last Done: 07/11/25 15:05
[facility] Fall Risk Assessment Tool Last Done: 07/11/25 15:05
TI-Yirnlj-Opjacihpgl Assessment Last Done: 07/11/25 15:05
Discharge Date and Time
Print Language: SRI LANKAN
--- NOTE | 2025-07-11 17:02 | ED.GENMED ---
History of Present Illness
General
Chief Complaint: Bowel Problem
Time Seen by Provider: 07/11/25 15:52
History of Present Illness
History of Present Illness:
FOCUSED PAST MEDICAL HISTORY
- Expressive aphasia
REVIEW OF OLD RECORDS
- Was here with UTI sepsis last October
Note:
CHIEF COMPLAINT(S)
Rectal bleeding
HISTORY OF PRESENT ILLNESS
The patient is a 70-year-old male with a medical history significant for colon cancer. He presented to the emergency department with concerns of rectal bleeding. Blood was noticed during a home assessment. Additionally, the patient shows expressive
aphasia, indicating some difficulty in following simple commands and maintaining eye contact, though he remains awake and alert. On examination, there is a presence of brown stool with traces of blood.
His medication list although cannot be confirmed includes baby aspirin.
MEDICATIONS
The patient has a list of three medications, as mentioned by family members or accompanying persons.
REVIEW OF SYSTEMS
- Gastrointestinal: Presence of rectal bleeding and brown stool with blood traces.
PHYSICAL EXAM
General: Alert, no acute distress. Appears generally weak and debilitated
Skin: Warm, dry.
Head: Normocephalic, atraumatic.
Neck: Supple, trachea midline.
Eye, Ears, Nose, Mouth and Throat: Oral mucosa moist.
Cardiovascular: Normal peripheral perfusion, No edema.
Respiratory: Respirations are non-labored.
Gastrointestinal: Abdomen nondistended. Trace heme positive brown stool with some scant amount of gross visualized blood as well
Back: Normal range of motion, Normal alignment.
Musculoskeletal: Normal range of motion, normal strength.
Neurological: Awake, expresses expressive aphasia, limited eye contact and interaction, alert and oriented to person, place, time, and situation, no focal neurological deficits observed.
Psychiatric: Cooperative, appropriate mood & affect.
PLAN
Evaluate rectal bleeding with further diagnostic tests to determine the source and extent of bleeding. Continue monitoring the patients neurological status, given his expressive aphasia and interaction limitations.
DIFFERENTIAL DIAGNOSIS
The Differential Diagnosis includes, in no particular order and is not limited to:
1. Gastrointestinal bleeding
2. Colorectal cancer
3. Diverticular disease
4. Hemorrhoids
5. Peptic ulcer disease
6. Angiodysplasia
7. Inflammatory bowel disease
8. Rectal trauma or fissure
9. Ischemic colitis
10. Vascular ectasia
Disposition:
SUMMARY OF ENCOUNTER
The patient, a 70-year-old male with a history of colon cancer and lung cancer, presented to the emergency department with rectal bleeding. On examination, brown stool with blood traces was observed. A review of digital records indicated a slight
drop in hemoglobin levels. The decision was made to consult with Gastroenterology (GI), who recommended a clear liquid diet, and planned for hospital evaluation the following day.
MANAGEMENT OF THE PATIENTS CARE WAS DISCUSSED WITH
I reached out to the Gastroenterology team who advised a clear liquid diet and arranged to see the patient in the hospital the following day.
PLAN
The immediate plan is to maintain the patient on a clear liquid diet as per Gastroenterology's advice and continue monitoring in the hospital setting to evaluate the source and severity of the bleeding.
MEDICAL DECISION MAKING
- Number and Complexity of Problems Addressed: Chronic conditions affecting care include colon cancer and lung cancer. Differential diagnosis includes gastrointestinal bleeding, colorectal cancer, diverticular disease, hemorrhoids, peptic ulcer
disease, angiodysplasia, inflammatory bowel disease, rectal trauma or fissure, ischemic colitis, vascular ectasia.
- Data:
Category 1: The digital records were reviewed, showing a slight drop in hemoglobin and the presence of blood traces in the stool.
- Risk:
The slight drop in hemoglobin indicates a potential risk for further complications, necessitating close monitoring and evaluation by the Gastroenterology team in a hospital setting.
DIAGNOSIS
1. Gastrointestinal bleeding (K92.2)
2. Remote history of colon cancer (Z85.038)
LABS
- Hemoglobin 9.8 down from 10.5 and 11.6 this past October
UPDATE
- The patient is essentially a nonhistorian and provides no meaningful history. I spoke to the son. Remote history of colon cancer from over 40 years ago. I also notified Dr. Rausch who will see in consultation tomorrow.
Past History
Past History
ED Past Medical History: CVA and Hypercholesterolemia
ED Past Surgical History: Other
Social History
Tobacco: Other
Alcohol: Other
Drug: None
Personal: Other
Living: with family
Employment: Retired
Family History
Family History: Unable to obtain
Phy Exam
Physical Exam
Physical Exam:
See HPI
Course
Orders/Labs/Results
Orders:
Orders
07/11/25
Electrocardiogram (*1) Stat
Comment: DONE EMR
07/11/25 15:11
Cardiac Monitoring- Treatment ONCE
07/11/25 15:30
Type+Screen Urgent
Complete Blood Count/With Diff Urgent
Comprehensive Metabolic Panel Urgent
Ferritin Urgent
Comment: ADD ON
Iron Urgent
Total Iron Binding Urgent
Vitamin B12 Urgent
Comment: ADD ON
07/11/25 17:10
Add On- LAB Routine
Tests Added?: iron,tibc,ferritin,b12
Abnormal Lab Results
07/11/25
15:30
RBC 3.35 L 10^6/uL
(4.70-6.10)
Hgb 9.8 L g/dL
(13.0-18.0)
Hct 30.7 L %
(39.0-52.0)
MCHC 31.9 L g/dL
(33.0-37.0)
Lymphocytes % 19.7 L %
(20.5-51.1)
Chloride 108 H mmol/L
(98-107)
BUN 21 H mg/dl
(9-20)
Glucose 101 H mg/dl
(70-99)
07/11/25 15:30
07/11/25 15:30
Vital Signs
Initial and Last Documented VS:
Initial Vital Signs
Temp Pulse Resp BP Pulse Ox
36.8 C 83 19 113/70 98
07/11/25 15:05 07/11/25 15:05 07/11/25 15:05 07/11/25 15:05 07/11/25 15:05
Last Documented Vital Signs
Temp Pulse Resp BP Pulse Ox
36.8 C 71 18 93/59 100
07/11/25 15:05 07/11/25 16:45 07/11/25 16:45 07/11/25 16:00 07/11/25 17:03
*Pulse Oximetry
SaO2: 100
Oxygen Mode of Delivery: Room air
Patient hypoxic: no
*Critical Care Note
Total Time (30-74mins, 75-104mins- exclusive of procedures): Not Applicable
ED Attending Note
-
Portions of this chart may have been created with voice recognition software.� Occasional wrong word or��sound alike� substitutions may have occurred due to the inherent limitations of voice recognition software.
Discharge Plan
Departure
Patient Disposition: Admit
Date of Disposition: 07/11/25
Time of Disposition: 16:30
Presentation/result/management discussed w/ accepting MD/DO: Hospitalist
Patient with high blood pressure during this ER visit?: Yes
Discharge Problem:
Rectal bleed
Prescriptions:
No Action
citalopram [Celexa] 20 mg Tablet
20 mg PO DAILY
atorvastatin [Lipitor] 40 mg Tablet
40 mg PO HS
trazodone 50 mg Tablet
50 mg PO HS
Referrals:
UNKNOWN - PT DOES,NOT KNOW [Family Provider]
Interventions
Interventions:
*Risk Screen - Suicide Last Done: 07/11/25 15:05
*General Assessment Last Done: 07/11/25 15:05
*Neglect/Abuse Screening Last Done: 07/11/25 15:05
[facility] Fall Risk Assessment Tool Last Done: 07/11/25 15:05
WO-Anebol-Vbiboukzbv Assessment Last Done: 07/11/25 15:05
Discharge Date and Time
Print Language: LUXEMBOURGER
[2025-07-11 17:45] LABS: Iron 48 ug/dl (49-181)
[2025-07-11 17:54] LABS: Total Iron Binding Capacity 326 ug/dl (261-462)
--- NOTE | 2025-07-11 18:26 | W.PN.UPDATE ---
Update Note
Progress Note Update
Seen and examined the patient with the resident. Agree with the plan formulated with him. See changes in my documentation
70-year-old man presented with rectal bleeding
EKG reviewed by me-sinus rhythm, left axis deviation
Awake and alert
Expressive aphasia
Cardiovascular system S1-S2 appreciated
Chest clear to auscultation
Abdomen soft and nontender midline scar
Right lower extremity edema
Right hemiplegia
# Rectal bleeding
Admit
Type and screen
Follow hemoglobin
Clear liquid diet
GI evaluation
# Right lower extremity edema-check ultrasound
# Acute blood loss anemia secondary GI bleed-check iron studies
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 Unclear if the patient is on antiplatelets or not
# Hyperlipidemia/atherosclerosis-continue statin
# History of colorectal cancer in the past i his 30s with surgery. Unclear when the patient had the last colonoscopy
# Depression-on Celexa, Trazodone
# Ambulatory dysfunction
# DVT prophylaxis-SCDs
# CODE STATUS- DNR
Part of this note was created using voice recognition system. Occasional wrong word or��sound alike� substitutions may have inadvertently occurred due to the inherent limitations of voice recognition software. If noted kindly bring it to my
attention for correction.
--- NOTE | 2025-07-11 18:30 | HPS.HSE ---
Family Physician
-
Family Physician: NOT KNOW UNKNOWN - PT DOES
Chief Complaint
-
Rectal Bleeding
History of Present Illness
70-year-old male with past medical history of CVA in December 2016 with resultant right sided hemiaplasia and expressive aphasia, colon cancer in his 30s status post resection, depression, hyperlipidemia presented to the ER for rectal bleeding. The
patient lives at home with a full-time food manager. His food manager noted streaks of red blood in his stool about 2 weeks ago. It got progressively more frequent and today there was a significant amount so he was brought to the ER for further
evaluation. With the patient's expressive aphasia, unable to obtain a complete history from him. Upon speaking with the son over the phone, he is not aware of any fever, chills, weight loss, nausea, vomiting, diarrhea, abdominal pain, changes in
mental status that he is aware of. He is not aware of who his PCP is or if he has followed up with colonoscopies with an oncologist/GI.
In the ED, the patient's blood pressure is stable 113/70, not tachycardic. Baseline hemoglobin from December 2024 was 12.5. Here in the ER is 9.8. BMP is fairly unremarkable. The ER did a digital rectal exam and noted just red blood on digital rectal
exam. No black or bright red blood noted. Hemoccult with trace to heme stool positive. GI was consulted and the patient was admitted for further workup.
Medical History
Past Medical History
Past Medical History: Reports Other (CVA 12/2016, hyperlipidemia, colon cancer in his 30s, depression)
Past Surgical History: Reports Other (Colon resection)
Social History
Tobacco: Former Smoker (Heavy smoker prior to CVA now quit)
Alcohol: Former (Significant alcohol use prior to CVA and now quit)
Drug: None
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
Family History
Family History: Unable to Obtain
Allergies / Home Medications
Allergies reflects when Allergies were last updated in [facility].
Home Medications with original date entered in [facility]
Allergy/Medication List:
Allergies
Allergy/AdvReac Type Severity Reaction Status Date / Time
meperidine Allergy Unknown Verified 11/03/24 16:16
morphine Allergy Unknown Verified 11/03/24 16:16
Home Medications
atorvastatin 40 mg tablet (Lipitor) 40 mg PO HS High Cholesterol 01/07/24
citalopram 20 mg tablet (Celexa) 20 mg PO DAILY Depression 01/07/24
trazodone 50 mg tablet 50 mg PO HS Sleep 07/11/25
Review of Systems
-
Unable to obtain full review of systems at this time due to: Other (Expressive aphasia)
History Source: Family
Physical Exam
Vital Signs
Vital Signs
Temp Pulse Resp BP Pulse Ox
98.2 F 71 18 93/59 100
07/11/25 15:05 07/11/25 16:45 07/11/25 16:45 07/11/25 16:00 07/11/25 17:03
Physical Exam
General: No Apparent Distress and Comfortable
HEENT: NormoCephalic
Respiratory: Clear
Cardiac: S1/S2 and Regular Rhythm
GI: Soft, Non Distended and Normal Bowel Sounds
Musculoskeletal: Edema, Right Lower Extremity
Skin: Warm and Dry
Neuro: Awake, Alert and Other (Left-sided hemiaplasia, expressive aphasia)
Psych: Calm
Laboratory Results
-
07/11/25 15:30
07/11/25 15:30
Laboratory Results
Total Bilirubin 0.5 mg/dl (0.2-1.3) 07/11/25 15:30
AST 25 U/L (17-59) 07/11/25 15:30
ALT 14 U/L (0-50) 07/11/25 15:30
Alkaline Phosphatase 52 U/L (38-126) 07/11/25 15:30
Impression/Plan
-
IMPRESSION:
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 Hemoccult was trace positive in the ER. Baseline
hemoglobin was 10.5 during his last hospitalization in October now at 9.8.
PLAN:
Acute on chronic blood loss anemia secondary to likely lower GI bleed
-- Hemoccult positive in the ED
-- Admit to tele
-- Cross & type
-- Consent for blood transfusion obtained from son in the chart
-- PPI BID
-- Trend H&H
-- Clear liquids per GI
-- Fluids
-- Check abdominal x-ray for any possible obstruction
-- Check iron studies
-- Appreciate GI
Right lower extremity swelling
-- RLE US pending
Hx CVA 2017
-- Does not appear to be on any anti-platelets?
-- Continue statin
HLD
-- Continue statin
Depression
-- Continue citalopram and trazodone
Former smoker
DNR per son his POA
Clear liquids
SCDs
[2025-07-11 19:06] LABS: Ferritin 15.5 ng/ml (17.9-464.0)
[2025-07-11 19:21] LABS: Vitamin B12 545 pg/ml (239-931)
--- NOTE | 2025-07-11 20:30 | PTCARENOTE ---
received pt from ED. pt pulled over from stretcher to bed. pt A&O x 3 with expressive aphasia. pt offers no current complaints and appears comfortable in bed. call vigil within reach and bed alarm pulled in. plan of care ongoing.
[2025-07-11] MEDS: NSS 1000 IV (20:56)
[2025-07-11] MEDS: DESYREL 50 MG PO (20:57)
[2025-07-11] MEDS: PROTONIX IV 40 MG IV (20:57)
[2025-07-11] MEDS: LIPITOR 40 MG PO (20:57)
[2025-07-11] MEDS: NSS (PRESERVATIVE FREE) 10 ML IV (20:57)
[2025-07-11 21:43] LABS: Hematocrit 29.2 % (39.0-52.0); Hemoglobin 9.5 g/dL (13.0-18.0)
[2025-07-12] VITALS (7 sets, daily range): BP systolic 94–139; BP diastolic 51–76
[2025-07-12] MEDS: NSS 500 IV (00:21)
[2025-07-12 01:16] LABS: Hematocrit 25.6 % (39.0-52.0); Hemoglobin 8.4 g/dL (13.0-18.0)
--- NOTE | 2025-07-12 05:30 | PTCARENOTE ---
at 2350 pt BP 87/48. other vss, hr 69, rr 18, 96 RA, afebrile. WEAPONS ENGINEER made aware, 500 mL NSS bolus ordered. h&h ordered for 0100, hgb resulted 8.4. WEAPONS ENGINEER notified of hgb results, instructed next hgb to be checked with 0600 labs. rechecked bp after
bolus infused, 107/54, hr 73. no further orders at this time. plan of care ongoing.
--- NOTE | 2025-07-12 06:48 | CON.GI ---
Addendum entered and electronically signed by BRYCE Cavazos 07/12/25 16:30:
verified with daughter on daily ASA no other anticoagulation prior to admission.
Addendum entered and electronically signed by Dionicio Cao MD 07/12/25 15:52:
The patient was seen and examined by me independently in collaboration with the nurse practitioner.
Past medical history/social history/medications/allergies/family history reviewed.
Lab data and imaging data reviewed.
Mr. Mullen is here today in consultation prior CVA 2017 no AC (on ASA 81) with hemiplegia and expressive aphasia, colon cancer with partial colectomy in his 30s p/w rectal bleeding (. Plan for cscope tomorrow r/a/b reviewed son LACHO [facility]lower risks
inc but not limited to bleeding, infection, perforation, anesthesia risk. Could consider EGD if cscope negative given ELLEN but suspect colonic source given reports of BRB (son could not confirm cigarette examiner saw it per H+P report they got was [facility]BPR).
Further recommendations pending scope.
Addendum entered and electronically signed by BRYCE Cavazos 07/12/25 11:49:
son and daughter agreeable for colon +/- EGD in am will order prep. Son with confirm with family about anticoagulation to ensure pt not taking prior to proceeding.
Original Note:
Consultation
-
Date/Time Consultation Requested: 07/11/252009
Date/Time Consultation Performed: 07/12/25 0850
Requesting Provider: Cookie Trevino MD
Performing Provider: BRYCE Edwards, Genia Cao MD
Reason for Consultation: rectal bleeding
Medical History
Chief Complaint / HPI
History of Present Illness:
Pt is a 70yo with hx CVA 2017 not on anticoagulation per med rec with hemiplegia and expressive aphasia, colon CA with colectomy in his 30's, depression, hyperlipidemia with onset of rectal bleeding. Pt has strong family hx colon CA in mother and
multiple siblings. Per ER noted per caregiver with streaks of blood in stool over last week. On admission noted with iron deficiency anemia with hbg 9.5. Last colonoscopy in system was 2004 with ileo colonic anastomosis in distal sigmoid,
thickened fold, TI normal. Per son likely note repeated after that time. Per patient and son no other GI issues with odynophagia, dysphagia without any restriction of diet. He also denies abdominal pain, diarrhea, constipation, or black stools.
Family unsure about NSAID use. 07/11/25 abd X ray Nonspecific bowel gas pattern without signs of obstruction. Moderate diffuse colonic stool burden may reflect constipation.
Past Medical History
Past Medical History: Cancer (colon with resection), CVA (with hemiplegia and expressive aphasia) and Hypercholesterolemia
Past Surgical History: Bowel Resection (colon resection)
Social History
Tobacco: Former Smoker
Alcohol: Former
Drug: None
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
Employment: Disabled
Family History
Family History: Other (mother and multiple sibling with colon CA)
Allergies / Home Medications
Allergy/AdvReac Type Severity Reaction Status Date / Time
meperidine Allergy Unknown Verified 11/03/24 16:16
morphine Allergy Unknown Verified 11/03/24 16:16
�Medication �Instructions �Recorded
atorvastatin 40 mg tablet (Lipitor) 40 mg PO HS High Cholesterol 01/07/24
citalopram 20 mg tablet (Celexa) 20 mg PO DAILY Depression 01/07/24
trazodone 50 mg tablet 50 mg PO HS Sleep 07/11/25
Review of Systems
-
History Source: Patient and Family
Constitutional: Reports No Symptoms
EENT: Reports No Symptoms
Respiratory: Reports No Symptoms
Cardiac: Reports No Symptoms
Abdomen/GI: Reports Constipated (per imaging) and Bloody Stools
: Reports No Symptoms
Musculoskeletal: Reports No Symptoms and Other
Skin: Reports No Symptoms
Neurological: Reports Other (hemiplegia, expressive aphasia )
Endocrine: Reports No Symptoms
Hematologic/Lymphatic: Reports Bleeding
Vital Signs
Temp Pulse Resp BP Pulse Ox
97.8 F 73 18 94/51 98
07/12/25 03:10 07/12/25 03:10 07/12/25 03:10 07/12/25 03:10 07/12/25 03:10
Physical Exam
Exam
General: Well Developed, Well Nourished and No Apparent Distress
HEENT: Normocephalic
Respiratory: Clear
Cardiac: Regular Rhythm
GI: Soft and Non Distended
Rectal: Other (no stool or blood on rectal exam heme neg mucous assist with nurse Klarissa)
Musculoskeletal: No Clubbing and No Cyanosis
Skin: Warm and Dry
Neuro: Awake, Alert and Other (expressive aphasia )
Psych: Calm
Results
WBC 8.6 10^3/uL (4.8-10.8) 07/11/25 15:30
Hgb Cancelled 07/12/25 04:10
Hct Cancelled 07/12/25 04:10
MCV 91.6 fL (80.0-94.0) 07/11/25 15:30
Plt Count 277 10^3/uL (130-400) 07/11/25 15:30
Absolute Neuts (auto) 5.8 10^3/uL (1.4-6.5) 07/11/25 15:30
Sodium 139 mmol/L (135-145) 07/11/25 15:30
Potassium 4.2 mmol/L (3.5-5.1) 07/11/25 15:30
Chloride 108 mmol/L (98-107) H 07/11/25 15:30
Carbon Dioxide 30 mmol/L (22-30) 07/11/25 15:30
BUN 21 mg/dl (9-20) H 07/11/25 15:30
Creatinine 0.8 mg/dL (0.7-1.3) 07/11/25 15:30
Calcium 8.5 mg/dl (8.4-10.2) 07/11/25 15:30
Total Bilirubin 0.5 mg/dl (0.2-1.3) 07/11/25 15:30
AST 25 U/L (17-59) 07/11/25 15:30
ALT 14 U/L (0-50) 07/11/25 15:30
Alkaline Phosphatase 52 U/L (38-126) 07/11/25 15:30
Diagnostic Image Results:
07/11/25 abd X ray
Nonspecific bowel gas pattern without signs of obstruction.
Moderate diffuse colonic stool burden may reflect constipation.
Prior GI Procedures:
EGD: none
Colonoscopy: 2004 with ileo colonic anastomosis in distal sigmoid, thickened fold, TI normal.
Assessment / Plan
-
Pt is a 70yo with hx CVA 2017 not on anticoagulation per med rec with hemiplegia and expressive aphasia, colon CA with colectomy in his 30's, depression, hyperlipidemia with onset of rectal bleeding. Pt has strong family hx colon CA in mother and
multiple siblings. Per ER noted per caregiver with streaks of blood in stool over last week. On admission noted with iron deficiency anemia with hbg 9.5. Last colonoscopy in system was 2004 with ileo colonic anastomosis in distal sigmoid,
thickened fold, TI normal. Per son likely note repeated after that time. Per patient and son no other GI issues with odynophagia, dysphagia without any restriction of diet. He also denies abdominal pain, diarrhea, constipation, or black stools.
Family unsure about NSAID use. 07/11/25 abd X ray Nonspecific bowel gas pattern without signs of obstruction. Moderate diffuse colonic stool burden may reflect constipation.
-rectal bleeding
-constipation per imaging
-iron deficiency anemia
-hx colon CA in 30's with resection
-multiple family member with colon CA
other med problems:
CVA 2017 not on anticoagulation per med rec with hemiplegia and expressive aphasia, depression, hyperlipidemia
PLAN:
Etiology of rectal bleeding with ELLEN related to recurrent colon mass/polyp with prior hx colon CA and family hx colon CA, hemorrhoids with constipation though not noted on exam , vs other
I reviewed for colonoscopy +/- EGD with pt and son-- son is POA with sister-- he will review with sister if they want to proceed
current rectal no blood or stool seen
will give miralax 34 gram now and continue senna with increased stool in X ray
trend hbg
cont iron
will follow
-
-
Thank you for consultation and allowing me to participate in the patient's care. Please call the teacher selection specialist GI physician during the after hours with any questions or concerns.
[2025-07-12] MEDS: NSS (PRESERVATIVE FREE) 10 ML IV ×2 (07:53→19:33)
[2025-07-12] MEDS: CELEXA 20 MG PO (07:53)
[2025-07-12] MEDS: PROTONIX IV 40 MG IV ×2 (07:53→19:33)
[2025-07-12] MEDS: NSS 1000 IV ×2 (08:10→19:33)
[2025-07-12 08:14] LABS: Hematocrit 26.6 % (39.0-52.0); Hemoglobin 8.5 g/dL (13.0-18.0); Mean Corp Hgb Conc. 32.0 g/dL (33.0-37.0); Mean Corpuscular Volume 93.0 fL (80.0-94.0); Platelet Count 241 10^3/uL (130-400); Red Cell Dist. Width 13.2 % (11.5-14.5)
[2025-07-12 08:25] LABS: ALT (SGPT) 11 U/L (0-50); AST (SGOT) 18 U/L (17-59); Albumin 3.0 g/dl (3.5-5.0); Alkaline Phosphatase 47 U/L (38-126); Blood Urea Nitrogen 15 mg/dl (9-20); Calcium 8.2 mg/dl (8.4-10.2); Carbon Dioxide 27 mmol/L (22-30); Chloride 111 mmol/L (98-107); Estimated Creatinine Clearance 91 ml/min; Glucose 78 mg/dl (70-99); Potassium 4.0 mmol/L (3.5-5.1); Sodium 139 mmol/L (135-145); Total Protein 5.7 g/dl (6.3-8.2); eGFR > 60.00
--- NOTE | 2025-07-12 08:38 | W.PN.HOSP.TC ---
Addendum entered and electronically signed by Christian Luz MD 07/12/25 16:01:
Seen and examined the patient with the resident. Agree with the plan formulated with him. See changes in my documentation
70-year-old man presented with rectal bleeding
EKG reviewed by me-sinus rhythm, left axis deviation
Awake and alert
Expressive aphasia
Cardiovascular system S1-S2 appreciated
Chest clear to auscultation
Abdomen soft and nontender midline scar
Right lower extremity edema
Right hemiplegia
# Rectal bleeding
Slight hemoglobin drop noted.
Plan is for colonoscopy tomorrow and proceed with endoscopy if that is negative
Family agreeable
GI evaluation appreciated
# Right lower extremity edema-check ultrasound
# Acute blood loss anemia secondary GI bleed-iron deficiency noted. IV iron ordered
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 Unclear if the patient is on antiplatelets or not
# Hyperlipidemia/atherosclerosis-continue statin
# History of colorectal cancer in the past i his 30s with surgery. Unclear when the patient had the last colonoscopy
# Depression-on Celexa, Trazodone
# Ambulatory dysfunction
# DVT prophylaxis-SCDs
# CODE STATUS- DNR
Original Note:
Today's Communication/Plan
-
Laxatives
Discussion between GI and patient's son who is POA ongoing whether or not to do an EGD/colonoscopy
Trend H&H
Assessment / Plan
Assessment / Plan
IMPRESSION:
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 Hemoccult was trace positive in the ER. Baseline
hemoglobin was 10.5 during his last hospitalization in October now at 9.8.
PLAN:
Acute on chronic blood loss anemia secondary to likely lower GI bleed
Iron deficiency anemia
-- Hemoccult positive in the ED
-- Admit to tele
-- Cross & type
-- Consent for blood transfusion obtained from son in the chart
-- PPI BID
-- Trend H&H
-- Clear liquids per GI
-- Fluids
-- Abdominal x-ray no obstructive gas pattern but stool burden present
-- GI reached out to son and he plans to discuss with his sister whether or not they want to proceed with a colonoscopy plus or minus EGD given history of colon cancer.
-- Appreciate GI
Hypotension
-- Hypotensive last night - responded well to 500 cc bolus
-- Monitor
Constipation
-- Stool burden noted on abdominal x-ray
-- Laxatives
Right lower extremity swelling
-- RLE US no DVT
Hx CVA 2016
-- Does not appear to be on any anti-platelets?
-- Continue statin
HLD
-- Continue statin
Depression
-- Continue citalopram and trazodone
Former smoker
DNR per son his POA
Clear liquids
SCDs
Anticipated Discharge: 24 - 48 hours
Subjective/Interval History
-
Date of Service: July 12, 2025
No BM overnight per nursing. 1 episode of hypotension which resolved after 500 cc bolus NS.
Objective Data
-
Labs:
Laboratory Results
07/11/25 07/12/25 07/12/25
21:31 01:10 04:10
WBC
Hgb 9.5 L 8.4 L Cancelled
Hct 29.2 L 25.6 L Cancelled
Plt Count
Sodium
Potassium
Chloride
Carbon Dioxide
BUN
Creatinine
Glucose
Calcium
Total Bilirubin
AST
ALT
Alkaline Phosphatase
07/12/25 07/12/25
06:54 12:10
WBC 7.3
Hgb 8.5 L Pending
Hct 26.6 L Pending
Plt Count 241
Sodium 139
Potassium 4.0
Chloride 111 H
Carbon Dioxide 27
BUN 15
Creatinine 0.8
Glucose 78
Calcium 8.2 L
Total Bilirubin 0.7
AST 18
ALT 11
Alkaline Phosphatase 47
Vital Signs:
Vital Signs
Temp Pulse Resp BP Pulse Ox
98.1 F 63 18 139/76 100
07/12/25 08:23 07/12/25 08:23 07/12/25 08:23 07/12/25 08:23 07/12/25 08:23
I&O
07/11/25 07/12/25 07/13/25
06:59 06:59 06:59
Intake Total 0 / 0
Output Total 150 / 150
Balance -150 / -150
Review of Systems
-
Unable to obtain full review of systems at this time due to: Other (Expressive aphasia secondary to CVA )
Physical Exam
-
General: No Apparent Distress and Comfortable
HEENT: Normocephalic
Respiratory: Clear to Auscultation
Cardiac: Regular Rhythm and S1/S2
GI: Soft, Nondistended and Normal Bowel Sounds
Musculoskeletal: Edema, Right Lower Extrem
Skin: Warm and Dry
Neuro: AO x 3 and Other (Right-sided hemiaplasia, expressive aphasia)
Psych: Calm
[2025-07-12 11:00] LABS: Vitamin B12 449 pg/ml (239-931)
[2025-07-12] MEDS: MIRALAX 34 GRAMS PO (11:46)
[2025-07-12] MEDS: SENOKOT-S 1 TABLET PO (11:46)
[2025-07-12] MEDS: FERRLECIT 110 MG IV (13:02)
[2025-07-12 14:40] LABS: Hematocrit 26.8 % (39.0-52.0); Hemoglobin 8.8 g/dL (13.0-18.0)
--- NOTE | 2025-07-12 16:08 | CM ---
Pt confused LM with son Mundo [phone] to complete IA.
[2025-07-12] MEDS: NULYTELY SOLUTION 4 LITERS PO (16:14)
[2025-07-12] MEDS: LIPITOR 40 MG PO (21:22)
[2025-07-12] MEDS: DESYREL 50 MG PO (21:22)
[2025-07-12 21:58] LABS: Hematocrit 26.9 % (39.0-52.0); Hemoglobin 9.0 g/dL (13.0-18.0)
[2025-07-13] VITALS (11 sets, daily range): BP systolic 16–135; BP diastolic 48–78; PULSE 77; O2SAT 98; BMI 30.8
[2025-07-13 04:36] LABS: Hematocrit 26.2 % (39.0-52.0); Hemoglobin 8.6 g/dL (13.0-18.0); Mean Corp Hgb Conc. 32.8 g/dL (33.0-37.0); Mean Corpuscular Volume 91.3 fL (80.0-94.0); Platelet Count 226 10^3/uL (130-400); Red Cell Dist. Width 13.0 % (11.5-14.5)
[2025-07-13] MEDS: NSS 1000 IV (04:37)
[2025-07-13 04:46] LABS: INR 1.34; PT 16.3 Sec (11.4-14.6)
[2025-07-13 05:04] LABS: Blood Urea Nitrogen 11 mg/dl (9-20); Calcium 8.3 mg/dl (8.4-10.2); Carbon Dioxide 23 mmol/L (22-30); Chloride 111 mmol/L (98-107); Estimated Creatinine Clearance 91 ml/min; Glucose 67 mg/dl (70-99); Potassium 4.0 mmol/L (3.5-5.1); Sodium 136 mmol/L (135-145); eGFR > 60.00
[2025-07-13 05:53] LABS: Glucose - Point of Care 73 mg/dl (70-99)
--- NOTE | 2025-07-13 05:56 | PTCARENOTE ---
Made [employer] aware of pt's blood work glucose that came back 67 this morning, rechecked with glucometer and he was 73. Pt is alert. Pt is NPO for colonoscopy and receiving NSS fluids. Will continue to monitor pt.
[2025-07-13] MEDS: PROTONIX IV 40 MG IV ×2 (07:39→20:49)
[2025-07-13] MEDS: NSS (PRESERVATIVE FREE) 10 ML IV ×2 (07:40→20:49)
[2025-07-13 07:41] LABS: Glucose - Point of Care 75 mg/dl (70-99)
[2025-07-13] MEDS: CELEXA PO (07:48)
--- NOTE | 2025-07-13 08:43 | W.PN.HOSP.TC ---
Addendum entered and electronically signed by Christian Luz MD 07/13/25 14:37:
Seen and examined the patient with the resident. Agree with the plan formulated with him. See changes in my documentation
70-year-old man presented with rectal bleeding
EKG reviewed by me-sinus rhythm, left axis deviation
Awake and alert
Expressive aphasia
Abdomen soft and nontender midline scar
CT abdomen pelvis-diverticulosis in the sigmoid colon. Likely malignant partially obstructing tumor 20 to 25 cm proximal to the anus. Biopsied and tattooed. Internal hemorrhoids. Ileocolonic anastomosis appears normal.
# Rectal bleeding
Slight hemoglobin drop noted.
Colonoscopy as above with partially obstructing mass
CT chest abdomen and pelvis for staging pending
# Right lower extremity edema-check ultrasound
# Acute blood loss anemia secondary GI bleed-iron deficiency noted. IV iron ordered
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 Unclear if he is on antiplatelets
# Hyperlipidemia/atherosclerosis-continue statin
# History of colorectal cancer in the past i his 30s with surgery. Unclear when the patient had the last colonoscopy
# Depression-on Celexa, Trazodone
# Ambulatory dysfunction
# DVT prophylaxis-SCDs
# CODE STATUS- DNR
Discussed with GI
Discussed with the patient's son in detail. Family get screening already as patient had cancer in his 30s. They are aware to keep up with the screening
This is likely malignancy. Son wants to talk to his sister and come up with a plan for the patient. They likely will opt no treatment. I also discussed about possible diverting colostomy as this might get obstructed in future. Also discussed
that this could be a palliative thing. He wants to discuss this further with the family and get back to us.
CAT scan of the chest abdomen pelvis for staging pending
time spent over 50 min
Original Note:
Today's Communication/Plan
-
CT abdomen pelvis for staging
Discuss goals of care with family given rectal mass found is highly concerning for malignancy
May discharge depending on conversation
Assessment / Plan
Assessment / Plan
IMPRESSION:
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 Hemoccult was trace positive in the ER. Baseline
hemoglobin was 10.5 during his last hospitalization in October now at 9.8.
PLAN:
Acute on chronic blood loss anemia secondary to likely lower GI bleed
Iron deficiency anemia
-- Hemoccult positive in the ED
-- Admit to tele
-- Cross & type
-- Consent for blood transfusion obtained from son in the chart
-- PPI BID
-- 5 bloody BM overnight
-- Trend H&H - Hg stable at 8.6
-- Abdominal x-ray no obstructive gas pattern but stool burden present
-- IV iron
-- Colonoscopy revealed a fungating partially obstructing large mass about 20 to 25 cm proximal to the anus. Biopsies were taken. Highly concerning for malignancy.
-- Will discuss with family next steps for possible diverting colostomy bag versus hospice
-- CT ab/pelvis with contrast to evaluate for staging.
-- Given patient has been hemodynamically stable, may consider discharge home today with instructions to f/u with GI outpatient.
-- Regular diet
-- Appreciate GI
Hypotension
-- Hypotensive last night - did not require fluids bolus
-- Monitor
Constipation
-- Stool burden noted on abdominal x-ray
-- Laxatives
Right lower extremity swelling
-- RLE US no DVT
Hx CVA 2017
-- Does not appear to be on any anti-platelets? - per daughter is on ASA 81 - continue to hold as bleeding is ongoing - can consider restarting in a few days if no recurrence of bleeding.
-- Continue statin
HLD
-- Continue statin
Depression
-- Continue citalopram and trazodone
Former smoker
DNR per son his POA
Clear liquids
SCDs
Anticipated Discharge: Within 24 hours
Subjective/Interval History
-
Date of Service: July 13, 2025
5 multiple movements overnight. A few episodes of hypotension but resolved without fluids. Hemoglobin is remained stable.
Objective Data
-
Labs:
Laboratory Results
07/12/25 07/13/25 07/13/25
21:53 04:19 04:19
WBC 6.9
Hgb 9.0 L 8.6 L Cancelled
Hct 26.9 L 26.2 L
Plt Count
PT
INR
Sodium
Potassium
Chloride
Carbon Dioxide
BUN
Creatinine
Glucose
Calcium
07/13/25
04:19
WBC
Hgb
Hct Cancelled
Plt Count 226
PT 16.3 H
INR 1.34
Sodium 136
Potassium 4.0
Chloride 111 H
Carbon Dioxide 23
BUN 11
Creatinine 0.8
Glucose 67 L
Calcium 8.3 L
Vital Signs:
Vital Signs
Temp Pulse Resp BP Pulse Ox
97.7 F 74 12 113/58 95
07/13/25 07:11 07/13/25 07:11 07/13/25 07:11 07/13/25 07:11 07/13/25 07:11
I&O
07/12/25 07/13/25 07/14/25
06:59 06:59 06:59
Intake Total 0 / 0 120 / 120
Output Total 150 / 150 1700 / 1700 400 / 400
Balance -150 / -150 -1580 / -1580 -400 / -400
Review of Systems
-
Unable to obtain full review of systems at this time due to: Other (Expressive aphasia )
Physical Exam
-
General: No Apparent Distress
HEENT: Normocephalic
Respiratory: Clear to Auscultation
Cardiac: Regular Rhythm and S1/S2
GI: Soft, Nondistended and Normal Bowel Sounds
Musculoskeletal: Edema, Right Lower Extrem
Skin: Warm and Dry
Neuro: Awake, Alert and Other (Expressive aphasia, left-sided hemiaplasia)
Psych: Calm
--- NOTE | 2025-07-13 10:24 | CM ---
Alert awake oriented aphasic patient who lives with 24 hour care givers with [facility] in a 2 story home with 0 step to enter.. He is assisted in all activities of daily living.He has hospital bed scooter wheelchair walker. Spoke with LACHO Lozoya
she would like him to be dc to home withy caregivers. Son should be able to transport home.Devora declined VN pt is at baseline .As per dgt Pt will send VN away .
Pt had [facility] acute rehab and [facility] history
Pharmacy [facility]
PCP [facility] visit at home
PLAN Return home with 24 hour care givers
[2025-07-13] MEDS: MIRALAX 17 GRAMS PO (11:34)
[2025-07-13] MEDS: OMNIPAQUE 50 ML PO (11:34)
[2025-07-13] MEDS: FERRLECIT 110 MG IV (15:27)
--- NOTE | 2025-07-13 15:30 | PTCARENOTE ---
Assumed care of patient at 3pm. No changes in assessment. Plan of care ongoing.
[2025-07-13] MEDS: NSS IV (17:20)
[2025-07-13] MEDS: DESYREL 50 MG PO (20:49)
[2025-07-13] MEDS: LIPITOR 40 MG PO (20:49)
--- NOTE | 2025-07-13 21:34 | VATNOTE ---
pt. refusing anymore IV attempts. PCN made aware. Pt. on tele and IV protonix.
[2025-07-14] VITALS (7 sets, daily range): BP systolic 103–127; BP diastolic 53–70; BMI 30.3
[2025-07-14] MEDS: NSS 500 IV (04:19)
[2025-07-14 04:37] LABS: Hematocrit 28.7 % (39.0-52.0); Hemoglobin 9.5 g/dL (13.0-18.0); Mean Corp Hgb Conc. 33.1 g/dL (33.0-37.0); Mean Corpuscular Volume 90.3 fL (80.0-94.0); Platelet Count 275 10^3/uL (130-400); Red Cell Dist. Width 13.2 % (11.5-14.5)
[2025-07-14 04:55] LABS: ALT (SGPT) 14 U/L (0-50); AST (SGOT) 24 U/L (17-59); Albumin 3.7 g/dl (3.5-5.0); Alkaline Phosphatase 59 U/L (38-126); Blood Urea Nitrogen 12 mg/dl (9-20); Calcium 8.7 mg/dl (8.4-10.2); Carbon Dioxide 23 mmol/L (22-30); Chloride 109 mmol/L (98-107); Estimated Creatinine Clearance 92 ml/min; Glucose 92 mg/dl (70-99); Potassium 3.9 mmol/L (3.5-5.1); Sodium 137 mmol/L (135-145); Total Protein 6.4 g/dl (6.3-8.2); eGFR > 60.00
--- NOTE | 2025-07-14 06:13 | PTCARENOTE ---
pt with large bloody BM- BP 88/53. no other complaints- notified [facility]- IV bolus ordered and H&H
[2025-07-14] MEDS: PROTONIX IV 40 MG IV ×2 (07:46→20:43)
[2025-07-14] MEDS: CELEXA 20 MG PO (07:47)
[2025-07-14] MEDS: NSS (PRESERVATIVE FREE) 10 ML IV ×2 (07:47→20:43)
[2025-07-14] MEDS: MIRALAX 17 GRAMS PO (07:47)
--- NOTE | 2025-07-14 13:27 | W.PN.HOSP.TC ---
Today's Communication/Plan
-
Surgery consult
Assessment / Plan
Assessment / Plan
70-year-old man presented with rectal bleeding
EKG reviewed by me-sinus rhythm, left axis deviation
Awake and alert
Expressive aphasia
Abdomen soft and nontender midline scar
Chest CTA
CT abdomen pelvis-diverticulosis in the sigmoid colon. Likely malignant partially obstructing tumor 20 to 25 cm proximal to the anus. Biopsied and tattooed. Internal hemorrhoids. Ileocolonic anastomosis appears normal.
# Rectal bleeding
Slight hemoglobin drop noted.
Colonoscopy as above with partially obstructing upper rectal mass
Discussed with the patient and son yesterday in detail. He is not sure what patient would want. Chance of obstruction discussed. He wants to talk to surgeon and explore options. Surgery consult requested to see if patient or family would at
least want diverting colostomy
# Right lower extremity edema-no DVT
# Acute blood loss anemia secondary GI bleed-iron deficiency noted. IV iron ordered
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 Unclear if he is on antiplatelets. Not on medicines list. Will restart aspirin once surgical plans are made
# Hyperlipidemia/atherosclerosis-continue statin
# History of colorectal cancer in the past i his 30s with surgery. Unclear when the patient had the last colonoscopy. Will need eventual colonoscopy if patient decides towards full treatment
# Depression-on Celexa, Trazodone
# Ambulatory dysfunction
# DVT prophylaxis- Add Lovenox
# CODE STATUS- DNR
D/W RN
D/W SON
Anticipated Discharge: 24 - 48 hours
Subjective/Interval History
-
Date of Service: July 14, 2025
Objective Data
-
Labs:
Laboratory Results
07/14/25
04:16
WBC 8.7
Hgb 9.5 L
Hct 28.7 L
Plt Count 275 D
Sodium 137
Potassium 3.9
Chloride 109 H
Carbon Dioxide 23
BUN 12
Creatinine 0.8
Glucose 92
Calcium 8.7
Total Bilirubin 1.0
AST 24
ALT 14
Alkaline Phosphatase 59
Vital Signs:
Vital Signs
Temp Pulse Resp BP Pulse Ox
97.0 F 81 20 108/53 97
07/14/25 11:34 07/14/25 11:34 07/14/25 11:34 07/14/25 11:34 07/14/25 11:34
I&O
07/13/25 07/14/25 07/15/25
06:59 06:59 06:59
Intake Total 120 / 120 2270 / 2270
Output Total 1700 / 1700 2840 / 2840
Balance -1580 / -1580 -570 / -570
[2025-07-14] MEDS: FERRLECIT 110 MG IV (13:38)
[2025-07-14 16:03] LABS: Hematocrit 30.8 % (39.0-52.0); Hemoglobin 10.1 g/dL (13.0-18.0); Mean Corp Hgb Conc. 32.8 g/dL (33.0-37.0); Mean Corpuscular Volume 89.8 fL (80.0-94.0); Platelet Count 287 10^3/uL (130-400); Red Cell Dist. Width 13.5 % (11.5-14.5)
--- NOTE | 2025-07-14 17:13 | CON.CRS ---
Consultation
-
Date/Time Consultation Performed: 07/14/25 1430
Medical History
-
Chief Complaint: rectal bleeding
History of Present Illness:
70 yo male with a h/o CVA in 2017 with expressive aphasia and right hemiplegia and colon cancer dx in his 30's s/p subtotal colectomy who presented from home where he lives with a multimedia developer vice president of product marketing with rectal bleeding. He denies pain and has no
tenderness on exam. He has had 2 episodes of bloody stools today per nursing. He was taken for colonoscopy yesterday with a partially obstructing fungating mass noted 20-25cm proximal to the anus which was tattooed and biopsied. Prior anastomosis
was patent. He is unable to provide history d/t aphasia.
Past Medical History
Past Medical History: Cancer (colon) and CVA (12/2016 with residual expressive aphasia and right hemiparesis)
Past Surgical History: Bowel Resection (subtotal colectomy )
Social History
Tobacco: Former Smoker
Alcohol: Former
Living: Other (with multimedia developer caretakers)
Employment: Disabled
Family History
Family History: Cancer (colon ca in mother and multiple siblings)
Allergies / Home Medications
Allergy/AdvReac Type Severity Reaction Status Date / Time
meperidine Allergy Unknown Verified 11/03/24 16:16
morphine Allergy Unknown Verified 11/03/24 16:16
�Medication �Instructions �Recorded �Confirmed �Type
atorvastatin 40 mg tablet (Lipitor) 40 mg PO HS High Cholesterol 01/07/24 07/11/25 History
citalopram 20 mg tablet (Celexa) 20 mg PO DAILY Depression 01/07/24 07/11/25 History
trazodone 50 mg tablet 50 mg PO HS Sleep 07/11/25 07/11/25 History
Review of Systems
-
Unable to obtain full review of systems at this time due to: Patient Non Verbal
History Source: Patient and Coordinating Provider
A 10 point review of systems was completed, and was negative except as per HPI.
Physical Exam
Vital Signs
Temp 99.5 F 07/14/25 15:09
Pulse 87 07/14/25 16:16
Resp Rate 16 07/14/25 15:09
Blood pressure 109/63 07/14/25 16:16
SaO2 94 07/14/25 15:09
07/13/25 07/14/25 07/15/25
06:59 06:59 06:59
Actual Weight 91.739 kg 90.293 kg
Body Mass Index (BMI) 30.3
Lab Results / Allergies
07/14/25 15:58
07/14/25 04:16
WBC 9.7 10^3/uL (4.8-10.8) 07/14/25 15:58
Hgb 10.1 g/dL (13.0-18.0) L 07/14/25 15:58
Hct 30.8 % (39.0-52.0) L 07/14/25 15:58
Plt Count 287 10^3/uL (130-400) 07/14/25 15:58
Abs Immat Gran (auto) 0.0 10^3/uL (0-0.05) 07/11/25 15:30
Neutrophils % 67.8 % (42.2-75.2) 07/11/25 15:30
Allergy/AdvReac Type Severity Reaction Status Date / Time
meperidine Allergy Unknown Verified 11/03/24 16:16
morphine Allergy Unknown Verified 11/03/24 16:16
Physical Exam
General: No Apparent Distress
HEENT: Normocephalic
Respiratory: Non Labored Respirations
GI: Soft, Non Tender and Non Distended
Skin: Warm and Dry
Neuro: Awake, Alert and Other (expressive aphasia, right hemiparesis)
Psych: Calm
Data Reviewed
-
CT Scan: Image Personally Visualized and interpreted, Report Reviewed by me, Discussed with Physician and Discussed with Patient
Labs: Labs Reviewed by me, Discussed with Physician and Discussed with Patient
Assessment / Plan
-
70 yo male with a h/o CVA in 2017 with expressive aphasia and right hemiplegia and colon cancer dx in his 30's s/p subtotal colectomy who presented from home where he lives with a multimedia developer vice president of product marketing with rectal bleeding. He denies pain and has no
tenderness on exam. He has had 2 episodes of bloody stools today per nursing. He was taken for colonoscopy yesterday with a partially obstructing fungating mass noted 20-25cm proximal to the anus which was tattooed and biopsied. Prior anastomosis
was patent. CT chest with mediastinal lymphadenopathy, ?mets. CT abdomen/pelvis with annular mass of the upper rectum. Suspected rectal cancer. Await path from colonoscopy. Some rectal bleeding persists, not unexpected. Will need to discuss goals
of care with patient's son.
He is unable to provide history d/t aphasia. Answers 'yes' to most questions. Attempted to reach his son Mundo x2 by phone but unable to reach.
plan:
Check CEA. Tentative flexible sigmoid tomorrow to evaluate exact location of lesion to determine mode of treatment. Will need eventual MRI pelvis for staging.
Tentative flex sig in am to better differentiate location of mass; will make NPO after MN and plan enema pre procedure
Trend h/h and transfuse as needed
Message left for son Mundo to discuss goals of care and options for management both operative and with chemo/xrt
[2025-07-14] MEDS: LOVENOX 40 MG SC (17:24)
[2025-07-14] MEDS: DESYREL 50 MG PO (20:43)
[2025-07-14] MEDS: LIPITOR 40 MG PO (20:43)
[2025-07-15 03:45] VITALS: BP 104/62
[2025-07-15] MEDS: FLEET PHOSPHATE ENEMA-ADULT 135 ML RECTAL (05:31)
[2025-07-15 06:00] VITALS: BMI 29.4
[2025-07-15 07:15] VITALS: BP 104/63
[2025-07-15] MEDS: PROTONIX IV 40 MG IV ×2 (08:19→20:53)
[2025-07-15] MEDS: NSS (PRESERVATIVE FREE) 10 ML IV ×2 (08:19→20:53)
[2025-07-15] MEDS: CELEXA 20 MG PO (08:20)
[2025-07-15] MEDS: MIRALAX PO (08:20)
[2025-07-15 10:24] LABS: Hematocrit 32.1 % (39.0-52.0); Hemoglobin 10.3 g/dL (13.0-18.0); Mean Corp Hgb Conc. 32.1 g/dL (33.0-37.0); Mean Corpuscular Volume 92.5 fL (80.0-94.0); Platelet Count 285 10^3/uL (130-400); Red Cell Dist. Width 13.7 % (11.5-14.5)
[2025-07-15 11:41] VITALS: BP 96/59
--- NOTE | 2025-07-15 13:32 | W.PN.UPDATE ---
Update Note
Progress Note Update
Able to speak to patient's son on phone and update him. Son, Mundo, agrees to workup including flexible sigmoidoscopy (phone consent obtained), CEA, and possible MRI (if tumor in rectum). Further plans from there. I earlier also spoke to
Sukh and recommended medical onscology consultation, particularly in regards to the mediastinal lymphadenopathy on CT.
--- NOTE | 2025-07-15 13:58 | W.PN.HOSP.TC ---
Today's Communication/Plan
-
Flex sig today
Assessment / Plan
Assessment / Plan
70-year-old man presented with rectal bleeding
EKG reviewed by me-sinus rhythm, left axis deviation
Awake and alert
Expressive aphasia
Abdomen soft and nontender midline scar
Chest CTA
CT abdomen pelvis-diverticulosis in the sigmoid colon. Likely malignant partially obstructing tumor 20 to 25 cm proximal to the anus. Biopsied and tattooed. Internal hemorrhoids. Ileocolonic anastomosis appears normal.
# Rectal bleeding
Slight hemoglobin drop noted.
Colonoscopy as above with partially obstructing upper rectal mass
Discussed with the patient and son in detail. He is not sure what patient would want. Chance of obstruction discussed. He wants to talk to surgeon and explore options. Surgery consult requested to see if patient or family would at least want
diverting colostomy.
Appreciate colorectal surgery evaluation. Patient is for sigmoidoscopy today to evaluate the tumor
Dr. Arevalo also requested hematology oncology evaluation for the mediastinal lymphadenopathy .
If family wants full treatment patient also may need an MRI of the pelvis
# Right lower extremity edema-no DVT
# Acute blood loss anemia secondary GI bleed-iron deficiency noted. IV iron ordered
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 Unclear if he is on antiplatelets. Not on medicines list. Will restart aspirin once surgical plans are made
# Hyperlipidemia/atherosclerosis-continue statin
# History of colorectal cancer in the past i his 30s with surgery. Unclear when the patient had the last colonoscopy. Will need eventual colonoscopy if patient decides towards full treatment
# Depression-on Celexa, Trazodone
# Ambulatory dysfunction
# DVT prophylaxis- Add Lovenox
# CODE STATUS- DNR
D/W
Anticipated Discharge: 24 - 48 hours
Subjective/Interval History
-
Date of Service: July 15, 2025
Objective Data
-
Labs:
Laboratory Results
07/15/25
10:03
WBC 9.0
Hgb 10.3 L
Hct 32.1 L
Plt Count 285
Vital Signs:
Vital Signs
Temp Pulse Resp BP Pulse Ox
98.2 F 89 18 96/59 98
07/15/25 11:41 07/15/25 11:41 07/15/25 11:41 07/15/25 11:41 07/15/25 11:41
I&O
07/14/25 07/15/25 07/16/25
06:59 06:59 06:59
Intake Total 2270 / 2270 360 / 360
Output Total 2840 / 2840 350 / 350
Balance -570 / -570
--- NOTE | 2025-07-15 14:17 | W.PN.UPDATE ---
Update Note
Progress Note Update
Flexible sigmoidoscopy complete. Tumor in rectum with distal margin at 8 cm from verge. Tattoo up and downstream noted. Ileosigmoid anastomosis at 25-30 cm from verge. Patient's son updated. Will order low residue diet and 'rectal cancer
protocol' pelvic MRI.
[2025-07-15] MEDS: FERRLECIT 110 MG IV (14:37)
[2025-07-15 15:17] VITALS: BP 138/73
[2025-07-15] MEDS: LOVENOX 40 MG SC (16:52)
[2025-07-15 19:21] VITALS: BP 102/64
[2025-07-15] MEDS: LIPITOR 40 MG PO (20:56)
[2025-07-15] MEDS: DESYREL 50 MG PO (23:03)
[2025-07-15 23:04] VITALS: BP 104/59
[2025-07-16] VITALS (7 sets, daily range): BP systolic 93–112; BP diastolic 57–66; PULSE 75; O2SAT 96; BMI 29.7
[2025-07-16 07:05] LABS: Hematocrit 27.0 % (39.0-52.0); Hemoglobin 8.8 g/dL (13.0-18.0); Mean Corp Hgb Conc. 32.6 g/dL (33.0-37.0); Mean Corpuscular Volume 92.8 fL (80.0-94.0); Platelet Count 258 10^3/uL (130-400); Red Cell Dist. Width 13.8 % (11.5-14.5)
[2025-07-16 07:40] LABS: Blood Urea Nitrogen 16 mg/dl (9-20); Calcium 8.4 mg/dl (8.4-10.2); Carbon Dioxide 22 mmol/L (22-30); Chloride 109 mmol/L (98-107); Estimated Creatinine Clearance 72 ml/min; Glucose 88 mg/dl (70-99); Potassium 3.7 mmol/L (3.5-5.1); Sodium 136 mmol/L (135-145); eGFR > 60.00
--- NOTE | 2025-07-16 07:57 | W.PN.HOSP.TC ---
Addendum entered and electronically signed by Christian Luz MD 07/16/25 15:14:
Seen and examined the patient with resident earlier today. Late documentation.
Patient did not have any complaints
He was still awaiting MRI at that time
Exam unchanged. Patient had bowel movements
Okay to continue aspirin and Lovenox prophylaxis await oncology evaluation requested by colorectal surgery as well as MRI
Possible discharge home with further outpatient scheduling of surgery if family and patient desire.
Original Note:
Today's Communication/Plan
-
Appreciate heme/onc
MRI pelvis
Appreciate surgery to discuss diverting colostomy with family
Repeat H&H
Possible D/C to home after MRI
Assessment / Plan
Assessment / Plan
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 Hemoccult was trace positive in the ER. Baseline
hemoglobin was 10.5 during his last hospitalization in October now at 9.8.
Imaging:
Colonoscopy 07/13/2025:
Impression:
- Diverticulosis in the sigmoid colon.
- Likely malignant partially obstructing tumor in the from 20 to 25
cm proximal to the anus. Biopsied. Tattooed.
- Internal hemorrhoids.
- Ileal-colonic anastomosis appeared normal
CT chest, abdomen, pelvis with IV contrast 07/13/2025:
Annular mass of the upper rectum most compatible with rectal cancer.
Mediastinal lymphadenopathy is not specific but could reflect charles metastatic disease in the setting of rectal cancer.
Trace bilateral pleural effusions.
Moderate coronary artery calcifications. Please correlate with symptoms of and risk factors for coronary artery disease, with further workup as clinically appropriate.
3.5 cm infrarenal abdominal aortic aneurysm.
Sigmoidoscopy 07/15/25:
Impression:
- Preparation of the colon was fair.
- Rectal mass 8.0 cm from the anal verge.
- Likely malignant partially obstructing tumor in the rectum.
- A tattoo was seen in the rectum.
- Patent end-to-end ileo-colonic anastomosis, characterized by
healthy appearing mucosa.
- No specimens collected.
PLAN:
Acute on chronic blood loss anemia secondary to rectal mass
Iron deficiency anemia
-- Trend H&H - Hg stable at 10.3 -> 8.8 - repeat H&H in afternoon
-- Abdominal x-ray no obstructive gas pattern but stool burden present
-- IV iron
-- Colonoscopy revealed a fungating partially obstructing large mass about 20 to 25 cm proximal to the anus. Biopsies pending.
-- CT ab/pelvis revealed annular mass of the upper rectum and mediastinal lymphadenopathy
-- Sigmoidoscopy revealed rectal mass 8 cm at anal verge
-- Appreciate colorectal surgery to discuss diverting colostomy with family - only partially obstructing so possible to f/u for surgery outpatient
-- Dr. Arevalo also requested hematology oncology evaluation for the mediastinal lymphadenopathy
-- If family wants full treatment he may need an MRI of pelvis - MRI of pelvis pending per surgery
-- Regular diet
-- Appreciate GI
Hypotension
-- resolved
Constipation
-- resolved
Right lower extremity swelling
-- RLE US no DVT
Hx CVA 2016
-- Does not appear to be on any anti-platelets? - per daughter is on ASA 81 - can restart if hg stable and no more bloody BM
-- Continue statin
HLD
-- Continue statin
Depression
-- Continue citalopram and trazodone
#Former smoker
#3.5 infrarenal abdominal aortic aneurysm
DNR per son his POA
Lovenox
Low residue
Anticipated Discharge: Today
Subjective/Interval History
-
Date of Service: July 16, 2025
1 non-bloody BM overnight.
Objective Data
-
Labs:
Laboratory Results
07/16/25
06:12
WBC 6.4
Hgb 8.8 L
Hct 27.0 L
Plt Count 258
Sodium 136
Potassium 3.7
Chloride 109 H
Carbon Dioxide 22
BUN 16
Creatinine 0.9
Glucose 88
Calcium 8.4
Vital Signs:
Vital Signs
Temp Pulse Resp BP Pulse Ox
98.1 F 79 18 97/60 93
07/16/25 03:09 07/16/25 03:09 07/16/25 03:09 07/16/25 03:09 07/16/25 03:09
I&O
07/15/25 07/16/25 07/17/25
06:59 06:59 06:59
Intake Total 360 / 360 720 / 720
Output Total 350 / 350 620 / 620
Balance 10 / 10 100 / 100
Review of Systems
-
Unable to obtain full review of systems at this time due to: Other (Expressive aphasia )
Physical Exam
-
General: No Apparent Distress
Respiratory: Clear to Auscultation
Cardiac: Regular Rhythm and S1/S2
GI: Soft, Nondistended and Normal Bowel Sounds
Musculoskeletal: Edema, Right Lower Extrem
Skin: Warm and Dry
Neuro: Awake, Alert and Other (R sided hemiplegia, expressive aphasia )
Psych: Calm
[2025-07-16] MEDS: MIRALAX 17 GRAMS PO (08:20)
[2025-07-16] MEDS: NSS (PRESERVATIVE FREE) 10 ML IV ×2 (08:20→19:31)
[2025-07-16] MEDS: CELEXA 20 MG PO (08:21)
[2025-07-16] MEDS: PROTONIX IV 40 MG IV ×2 (08:21→19:31)
--- NOTE | 2025-07-16 09:55 | CON.ONC ---
Consultation
-
Date Consultation Requested: 07/16/25
Date Consultation Performed: 07/16/25
Requesting Provider: Dr. Cookie Trevino
Performing Provider: Dr. Bee Espinoza
Reason for Consultation: rectal bleeding and mass
Impression
Impression
ABLA -rectal bleeding -ELLEN -complete ferrlicit 5 day course 07/16
Tumor in rectum with distal margin at 8 cm from verge
Ileosigmoid anastomosis at 25-30 cm from verge
hx colon cancer in 30s s/p resection
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
RLE edema -no DVT on US
Plan
Plan
follow for pathology
follow up MRI pelvis -rectal ca protocol
follow up CEA
appreciate GI evaluation
Close OP follow up will be arranged upon discharge -will likely need PET to determine significance of mediastinal lymphadenopathy
Would benefit from early palliative care involvement to assist with advanced care planning and symptom management at home
Patient History
History of Present Illness
70yo M who presented with rectal bleeding. He reported some streaks of blood in his stool 2 weeks ago, however, has progressively worsened so presented to the ER on 07/11 for further evaluation. His initial evaluation was notable for Hgb 9.8, MCV
91.6 with normal WBC, platelets, renal function, and LFTs. His CT CAP showed an annular mass of the upper rectum, mediastinal lymphadenopathy, trace bilateral pleural effusions, moderate coronary artery calcifications, and a 3.5 cm infrarenal
abdominal aortic aneurysm. His RLE US for evaluation of RLE edema was negative for DVT. He underwent a colonoscopy 07/13 that showed a partially obstructing tumor 20 to 25 cm proximal to the anus which was biopsied and tattooed. Internal hemorrhoids.
Ileocolonic anastomosis appears normal. He has not required transfusion during this hospitalization. He will complete a 5 day course of ferrlecit today.
History obtained via chart review, pt with aphagia so unable to provide data.
Past-Medical/Surgical History
PMH stroke with residual hemiplegia and expressive aphasia, colon cancer age 30s, depression, HLD
PSH colon cancer resection
Social former smoker, quit 2016. former ETOH, quit 2016. deneis recreational drugs. 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
Family colon cancer
Patient Medication
�Medication �Instructions �Recorded �Confirmed �Last Taken �Type
atorvastatin 40 mg tablet (Lipitor) 40 mg PO HS High Cholesterol 01/07/24 07/11/25 Unknown History
citalopram 20 mg tablet (Celexa) 20 mg PO DAILY Depression 01/07/24 07/11/25 Unknown History
trazodone 50 mg tablet 50 mg PO HS Sleep 07/11/25 07/11/25 Unknown History
Active Medications
Generic Name Dose Route Start Last Admin
Trade Name Freq PRN Reason Stop Dose Admin
Acetaminophen 650 mg 07/11/25 20:10
Acetaminophen 325 Mg Tablet PO 08/08/25 20:09
Q4HPRN PRN
mild pain/DARBY/temp> 100.4F
Atorvastatin Calcium 40 mg 07/11/25 22:00 07/15/25 20:56
Atorvastatin (Lipitor) 40 Mg Tablet PO 08/08/25 21:59 40 mg
HS JAMARCUS Administration
Bisacodyl 10 mg 07/11/25 20:10
Bisacodyl 10 Mg Rectal Suppository RECTAL 08/08/25 20:09
[id number] PRN
constipation
Citalopram Hydrobromide 20 mg 07/12/25 08:00 07/16/25 08:21
Citalopram 20 Mg Tablet PO 08/09/25 07:59 20 mg
DAILY JAMARCUS Administration
Dextrose 12.5 grams 07/13/25 06:11
Dextrose 50% (0.5 Grams/Ml) 50 Ml Syringe IV 08/10/25 06:10
[id number] PRN
hypoglycemia protocol
Enoxaparin Sodium 40 mg 07/14/25 18:00 07/15/25 16:52
Enoxaparin Sodium 40 Mg/0.4 Ml Syringe SC 08/11/25 17:59 40 mg
On Hold: 07/16/25 08:25 QPM JAMARCUS Administration
Ferric Sodium Gluconate 110 mls @ 110 mls/hr 07/12/25 14:00 07/15/25 14:37
Complex 125 mg/ Sodium IV 07/16/25 14:59 110 mls
Chloride DAILY@1400 JAMARCUS Administration
Pantoprazole Sodium 40 mg 07/11/25 20:10 07/16/25 08:21
Pantoprazole Sodium 40 Mg/10 Ml Vial IV 08/08/25 20:09 40 mg
BID JAMARCUS Administration
Polyethylene Glycol 17 grams 07/11/25 20:10
Polyethylene Glycol Powder 17 Grams Packet PO 08/08/25 20:09
DAILYPRN PRN
constipation
Polyethylene Glycol 17 grams 07/13/25 09:00 07/16/25 08:20
Polyethylene Glycol Powder 17 Grams Packet PO 08/10/25 08:59 17 grams
DAILY JAMARCUS Administration
Senna/Docusate Sodium 1 tablet 07/11/25 20:10
Docusate W/Senna (Nathaly-Colace) Tablet PO 08/08/25 20:09
BIDPRN PRN
constipation
Sodium Chloride 0 flush 07/11/25 21:00
Sodium Chloride 0.9% (Flush) Syringe IV 08/08/25 20:59
PER PROTOCOL JAMARCUS
Sodium Chloride 10 ml 07/11/25 20:10 07/16/25 08:20
Sodium Chloride 0.9% (Preservative Free) 10 Ml Vial IV 08/08/25 20:09 10 ml
BID JAMARCUS Administration
Trazodone HCl 50 mg 07/11/25 22:00 07/15/25 23:03
Trazodone 50 Mg Tablet PO 08/08/25 21:59 50 mg
HS JMAARCUS Administration
Review of Systems
-
Unable to obtain full review of systems at this time due to: Other (aphasia)
Physical Exam
-
General: Appears Chronically Ill
HEENT: Moist Mucous Membranes; Negative Jaundice
Pulmonary: Other (unlabored)
GI: Soft
Extremities: Pulses Present and Edema (RLE edema)
Neurology: Other (stroke with residual hemiplegia and expressive aphasia)
Skin: Warm
Psych: Calm
Labs
Lab Results
WBC 6.4 10^3/uL (4.8-10.8) 07/16/25 06:12
RBC 2.91 10^6/uL (4.70-6.10) L 07/16/25 06:12
Hgb 8.8 g/dL (13.0-18.0) L 07/16/25 06:12
Hct 27.0 % (39.0-52.0) L 07/16/25 06:12
MCV 92.8 fL (80.0-94.0) 07/16/25 06:12
MCH 30.2 pg (27.0-31.0) 07/16/25 06:12
MCHC 32.6 g/dL (33.0-37.0) L 07/16/25 06:12
RDW 13.8 % (11.5-14.5) 07/16/25 06:12
Plt Count 258 10^3/uL (130-400) 07/16/25 06:12
MPV 10.4 fL (7.4-10.4) 07/16/25 06:12
Abs Immat Gran (auto) 0.0 10^3/uL (0-0.05) 07/11/25 15:30
Absolute Neuts (auto) 5.8 10^3/uL (1.4-6.5) 07/11/25 15:30
Absolute Lymphs (auto) 1.7 10^3/uL (1.2-3.4) 07/11/25 15:30
Absolute Monos (auto) 0.6 10^3/uL (0.1-0.6) 07/11/25 15:30
Absolute Eos (auto) 0.3 10^3/uL (0-0.7) 07/11/25 15:30
Absolute Basos (auto) 0.1 10^3/uL (0-0.2) 07/11/25 15:30
Immature Gran % 0.1 % (0-0.5) 07/11/25 15:30
Neutrophils % 67.8 % (42.2-75.2) 07/11/25 15:30
Lymphocytes % 19.7 % (20.5-51.1) L 07/11/25 15:30
Monocytes % 7.5 % (1.7-9.3) 07/11/25 15:30
Eosinophils % 4.0 % (0-6) 07/11/25 15:30
Basophils % 0.9 % (0-2) 07/11/25 15:30
Creatinine 0.9 mg/dL (0.7-1.3) 07/16/25 06:12
Vital Signs
Vital Signs
Temp Pulse Resp BP Pulse Ox
97.7 F 77 18 94/58 95
07/16/25 07:20 07/16/25 07:20 07/16/25 07:20 07/16/25 07:20 07/16/25 07:20
--- NOTE | 2025-07-16 10:50 | W.PN.CRS1 ---
Today's Communication / Plan
-
MRI pending
heme onc c/s
Assessment/Plan
-
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 He denies pain and has no
tenderness on exam. He has had 2 episodes of bloody stools today per nursing. He was taken for colonoscopy yesterday with a partially obstructing fungating mass noted 20-25cm proximal to the anus which was tattooed and biopsied. Prior anastomosis
was patent. CT chest with mediastinal lymphadenopathy, ?mets. CT abdomen/pelvis with annular mass of the upper rectum. Suspected rectal cancer. Await path from colonoscopy. Some rectal bleeding persists, not unexpected. Will need to discuss goals
of care with patient's son.
07/15/2025 flex sig: Rectal mass 8.0 cm from the anal verge, likely malignant partially obstructing tumor in the rectum.
Plan:
-CEA pending
-MRI pelvis for staging
-CT C/A/P- Mediastinal lymphadenopathy
-Pathology pending
-Recommend hematology/oncology consult
-Trend h/h and transfuse as needed
-Plans to follow post MRI
Subjective Data
Subjective Data
Date of Service: July 16, 2025
Patient states he feels well. He has no complaints. Pain is controlled. Denies nausea or vomiting.
Objective Data
-
Vital Signs
Temp Pulse Resp BP Pulse Ox
97.7 F 77 18 94/58 96
07/16/25 07:20 07/16/25 07:20 07/16/25 07:20 07/16/25 07:20 07/16/25 10:13
Intake & Output
07/15/25 07/16/25 07/17/25
06:59 06:59 06:59
Intake Total 360 / 360 720 / 720
Output Total 350 / 350 620 / 620
Balance 100 / 100
Intake:
Oral fluids 360 / 360 720 / 720
Output:
Urine, Voided 350 / 350 620 / 620
Other:
Number of unmeasured liquid
stools
Rectum 2
Lab Results
07/16/25 06:12
07/16/25 06:12
Physical Exam
-
General: No Acute Distress and AOx3
Abdomen: Soft, Non Distended and Non Tender
Skin: Warm and Dry
--- NOTE | 2025-07-16 11:17 | CM ---
CM met with patient at bedside. MRI is pending for tumor work up. PT continues to recommend home care upon d/c. Plan remains for patient to return home with 24 hr caregivers. Patient/family declining home care services. Will continue to follow.
Plan: home with 24 hr caregivers upon d/c, family will provide transport home
[2025-07-16] MEDS: FERRLECIT 110 MG IV (15:26)
[2025-07-16 16:17] LABS: Hematocrit 29.5 % (39.0-52.0); Hemoglobin 9.6 g/dL (13.0-18.0)
--- NOTE | 2025-07-16 16:17 | CM ---
Addendum entered by Clara Lehman 07/16/25 16:29:
Spoke with daughter she was worried re d/c today as she needs to restart 24 hour care givers.
f/u with Devora, plan d/c tomorrow, family will either transport or WC van will be needed, she will need to be called tomorrow. She is going to try and see if her brother will transport.
Declined VN at this time.
Per Devora, her dad can understand all that is being said to him.
Original Note:
IMM reviewed via phone with daughter Devora.
[2025-07-16] MEDS: DESYREL 50 MG PO (19:32)
[2025-07-16] MEDS: LIPITOR 40 MG PO (19:32)
[2025-07-17 03:05] VITALS: BP 97/54
[2025-07-17 05:14] VITALS: BMI 29.7
--- NOTE | 2025-07-17 08:07 | W.PN.HOSP.TC ---
Addendum entered and electronically signed by Christian Luz MD 07/17/25 14:05:
Seen and examined the patient earlier today. Late documentation. Patient had no symptoms mild bloodstained bowel movements however hemoglobin is stable.
Agree with the resident's note and plan
MRI of the pelvis-noted primary tumor in the upper rectum, T1 or T2 MRI stage with N0 no sphincter involvement-which is stage I.
Normally would treat be treated with surgical resection however patient's pathology confirms MMR gene deficiency. Therefore he might be candidate for checkpoint inhibitor which may eradicate the tumor.
Per discussion with colorectal surgery he has an appointment with colorectal as well as hematology oncology as outpatient
Patient's son was updated by Dr. Arevalo
Patient also needs a PET scan for the mediastinal lymphadenopathy
Case discussed with nursing
He will need further continued follow-up as outpatient to complete his workup and pursue treatment
More than 30 minutes spent in discharge including
Final examination of the patient
Summarizing hospital stay
Instructions for continuing care to all relevant caregivers
Preparation of discharge records, prescriptions, and referral forms
Original Note:
Today's Communication/Plan
-
Discharge today for outpatient follow ups with colorectal surgery and heme/onc.
Will need PET Scan outpatient.
Assessment / Plan
Assessment / Plan
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 Hemoccult was trace positive in the ER.
Colonoscopy 07/13/2025:
- Diverticulosis in the sigmoid colon.
- Likely malignant partially obstructing tumor in the from 20 to 25cm proximal to the anus. Biopsied. Tattooed.
- Internal hemorrhoids.
- Ileal-colonic anastomosis appeared normal
CT chest, abdomen, pelvis with IV contrast 07/13/2025:
Annular mass of the upper rectum most compatible with rectal cancer.
Mediastinal lymphadenopathy is not specific but could reflect charles metastatic disease in the setting of rectal cancer.
Trace bilateral pleural effusions.
Moderate coronary artery calcifications. Please correlate with symptoms of and risk factors for coronary artery disease, with further workup as clinically appropriate.
3.5 cm infrarenal abdominal aortic aneurysm.
Sigmoidoscopy 07/15/25:
- Rectal mass 8.0 cm from the anal verge.
- Likely malignant partially obstructing tumor in the rectum.
- A tattoo was seen in the rectum.
- Patent end-to-end ileo-colonic anastomosis, characterized by healthy appearing mucosa.
- No specimens collected.
PLAN:
Acute on chronic blood loss anemia secondary to rectal mass
Iron deficiency anemia
-- Trend CBC: Hb stable at 8.9 (8.8 yesterday); 9.6 as seen on H/H in PM yesterday, but change not significant
-- Abdominal x-ray no obstructive gas pattern but stool burden present
-- s/p IV iron course
-- Colonoscopy revealed a fungating partially obstructing large mass about 20 to 25 cm proximal to the anus. Biopsies pending.
-- CT ab/pelvis revealed annular mass of the upper rectum and mediastinal lymphadenopathy
-- Sigmoidoscopy revealed rectal mass 8 cm at anal verge
-- Colorectal surgery reccs - only partially obstructing so possible to f/u for surgery outpatient
-- Okay to d/c and f/u outpatient
-- Heme/onc reccs: defer to colorectal given T 1-2/N0; follow up outpatient
-- MRI of the pelvis ordered for surgical planning
-- Will need outpatient PET Scan
-- Regular diet
-- Appreciate GI
Hypotension
-- resolved
Constipation
-- resolved
Right lower extremity swelling
-- RLE US no DVT
Hx CVA 2016
-- Continue ASA 81mg
-- Continue statin
HLD
-- Continue statin
Depression
-- Continue citalopram and trazodone
#Former smoker
#3.5 infrarenal abdominal aortic aneurysm
DNR per son his POA
Lovenox
Low residue
Anticipated Discharge: Today
Subjective/Interval History
-
Date of Service: July 17, 2025
Aphasic but able to express no acute complaints this AM.
Notes 1 BM yesterday, unsure of characteristics.
Per nursing has had 2 BMs in past 24 hours with small amounts of BRB.
Denies chest pain, shortness of breath, dizziness.
Objective Data
-
Labs:
Laboratory Results
07/17/25
07:07
WBC Pending
Hgb Pending
Hct Pending
Plt Count Pending
Vital Signs:
Vital Signs
Temp Pulse Resp BP Pulse Ox
98.8 F 73 18 97/54 95
07/17/25 03:05 07/17/25 03:05 07/17/25 03:05 07/17/25 03:05 07/17/25 03:05
I&O
07/16/25 07/17/25 07/18/25
06:59 06:59 06:59
Intake Total 720 / 720 1320 / 1320
Output Total 620 / 620 470 / 470
Balance 100 / 100 850 / 850
Review of Systems
-
History Source: Patient
All other systems: Reviewed and negative
Physical Exam
-
General: No Apparent Distress and Comfortable
HEENT: Normocephalic and Atraumatic
Respiratory: Clear to Auscultation and Non Labored Respirations
Cardiac: Regular Rhythm and S1/S2
GI: Soft, Nontender, Nondistended and Normal Bowel Sounds
Musculoskeletal: No Clubbing, No Cyanosis and No Edema
Skin: Warm
Neuro: Awake
Psych: Calm
Data Reviewed
-
Labs: Labs Reviewed by me and Discussed with Patient
[2025-07-17 08:18] VITALS: BP 100/53
[2025-07-17] MEDS: PROTONIX IV 40 MG IV (08:25)
[2025-07-17] MEDS: LOW STRENGTH ASPIRIN 81 MG PO (08:25)
[2025-07-17] MEDS: CELEXA 20 MG PO (08:25)
[2025-07-17] MEDS: NSS (PRESERVATIVE FREE) 10 ML IV (08:26)
[2025-07-17 08:27] LABS: Hematocrit 27.2 % (39.0-52.0); Hemoglobin 8.9 g/dL (13.0-18.0); Mean Corp Hgb Conc. 32.7 g/dL (33.0-37.0); Mean Corpuscular Volume 91.9 fL (80.0-94.0); Platelet Count 265 10^3/uL (130-400); Red Cell Dist. Width 14.1 % (11.5-14.5)
[2025-07-17] MEDS: MIRALAX 17 GRAMS PO (08:27)
--- NOTE | 2025-07-17 09:58 | W.PN.CRS1 ---
Today's Communication / Plan
-
okay for d/c from our standpoint
f/u with Dr. Arevalo and oncology
Assessment/Plan
-
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 He denies pain and has no
tenderness on exam. He has had 2 episodes of bloody stools today per nursing. He was taken for colonoscopy yesterday with a partially obstructing fungating mass noted 20-25cm proximal to the anus which was tattooed and biopsied. Prior anastomosis
was patent. CT chest with mediastinal lymphadenopathy, ?mets. CT abdomen/pelvis with annular mass of the upper rectum. Suspected rectal cancer. Await path from colonoscopy. Some rectal bleeding persists, not unexpected. Will need to discuss goals
of care with patient's son.
07/15/2025 flex sig: Rectal mass 8.0 cm from the anal verge, likely malignant partially obstructing tumor in the rectum.
Plan:
-CEA pending
-MRI pelvis performed yesterday: T 1/2 N 0, no sphincter involvement
-CT C/A/P- Mediastinal lymphadenopathy
-Pathology pending
-Appreciate hematology oncology
-Okay for d/c from our perspective. Will need close follow up with oncology and Dr. Arevalo. No plans for surgery during this admission. Updated his son Mundo via phone.
Subjective Data
Subjective Data
Date of Service: July 17, 2025
Patient is aphasic but it able to express he feels okay. He denies pain. No nausea or vomiting. Tolerating a diet.
Objective Data
-
Vital Signs
Temp Pulse Resp BP Pulse Ox
97.3 F 80 18 100/53 96
07/17/25 08:18 07/17/25 08:18 07/17/25 08:18 07/17/25 08:18 07/17/25 08:18
Intake & Output
07/16/25 07/17/25 07/18/25
06:59 06:59 06:59
Intake Total 720 / 720 1320 / 1320
Output Total 620 / 620 470 / 470 200 / 200
Balance 100 / 100 850 / 850 -200 / -200
Intake:
Oral fluids 720 / 720 1320 / 1320
Output:
Urine, Voided 620 / 620 470 / 470 200 / 200
Lab Results
07/17/25 07:07
07/16/25 06:12
Physical Exam
-
General: No Acute Distress and AOx3
Abdomen: Soft, Non Distended and Non Tender
[2025-07-17 11:34] VITALS: BP 111/63
--- NOTE | 2025-07-17 13:50 | CM ---
entered order for discharge.
Spoke with dgt Devora Tang she said that Prisca family member will be able to drive him home.
Devora said that care givers will be able to resume care for patient.Offered VN but declined [place] said pt will refuse VN.
IMM done yesterday . Devora agrees with dc.
PLAN Home with care givers no VN needs
--- NOTE | 2025-07-17 14:28 | W.PN.ONC ---
Today's Communication / Plan
-
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 The staining also indicates possible benefit from immunotherapy. As per the colorectal note, he will be presented at a colorectal tumor board. We will
continue to follow closely and initiate treatment once a final decision has been made.
Impression
Impression
ABLA -rectal bleeding -ELLEN -complete ferrlicit 5 day course 07/16
Tumor in rectum with distal margin at 8 cm from verge
Ileosigmoid anastomosis at 25-30 cm from verge
hx colon cancer in 30s s/p resection
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
RLE edema -no DVT on US
Plan
Plan
follow for pathology
follow up MRI pelvis -rectal ca protocol
follow up CEA
appreciate GI evaluation
Close OP follow up will be arranged upon discharge -will likely need PET to determine significance of mediastinal lymphadenopathy
Would benefit from early palliative care involvement to assist with advanced care planning and symptom management at home
Subjective/Objective
Subjective/Objective
He is unable to give any meaningful history due to his stroke. Examination is unchanged.
Vital Signs:
Vital Signs
Temp Pulse Resp BP Pulse Ox
97.5 F 75 18 111/63 96
07/17/25 11:34 07/17/25 11:34 07/17/25 11:34 07/17/25 11:34 07/17/25 11:34
Lab Results:
Laboratory Data
WBC 5.4 10^3/uL (4.8-10.8) 07/17/25 07:07
Hgb 8.9 g/dL (13.0-18.0) L 07/17/25 07:07
Plt Count 265 10^3/uL (130-400) 07/17/25 07:07
PT 16.3 Sec (11.4-14.6) H 07/13/25 04:19
INR 1.34 07/13/25 04:19
eGFR > 60.00 07/16/25 06:12
--- NOTE | 2025-07-17 15:25 | PTCARENOTE ---
IV discontinued. Tele pack removed. Home meds returned to patient from pharmacy. Discharge instructions printed and reviewed with patient and daughter in law who verbalized understanding. Pt transported off the floor via wheelchair accompanied by RN
with all belongings from the room.
--- NOTE | 2025-07-17 17:15 | W.DCSUMMARY ---
Discharge Summary
Discharge Data
Date of Admission: 07/11/25
Date of Discharge: 07/17/25
Total time spent discharging patient (in min): 50
-
Pending Results: Yes
Additional Pending Results:
CEA Level
Hospital Course
Jesus Mullen is a 70 year old male with a past medical history of cerebrovascular accident in December 2016 with resultant right-sided hemiplegia and expressive aphasia, colon cancer in his 30s status post ileocolic resection, major depressive disorder,
hyperlipidemia who presented to the emergency department on 07/11/2025 with rectal bleeding.
HISTORY OF PRESENT ILLNESS
Patient's history was limited secondary to aphasia. 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 This blood in the stool became progressively
more frequent and there was a significant amount on the day of arrival, so the patient was brought to the ER for further evaluation. The patient's family was not aware of any fevers, chills, weight loss, nausea, vomiting, diarrhea, abdominal pain,
or changes in mental status.
ED COURSE
On arrival to the emergency department, patient's vital signs were stable, including blood pressure and heart rate. Patient's hemoglobin was 9.8 compared to a baseline of 12.5 taken in December 2024. Digital rectal exam revealed trace heme positive
stool and red blood. The patient was admitted for further evaluation and gastrointestinal workup.
HOSPITAL COURSE
During the patient's hospitalization, the patient received multiple rounds of IV iron. Colonoscopy on 07/13/2025 revealed diverticulosis in the sigmoid colon and a partially obstructing tumor 20 to 25 cm proximal to the anus. This mass was
biopsied. Additionally, colonoscopy also revealed internal hemorrhoids and a normal ilio colonic anastomosis. The patient also underwent a CT chest, abdomen, and pelvis with IV contrast on 07/13/2025 for staging of this tumor. This revealed an
annular mass of the upper rectum most compatible with rectal cancer. There was mediastinal lymphadenopathy. 2 days later, the patient underwent sigmoidoscopy which showed a rectal mass 8 cm from the anal verge. Colorectal surgery was consulted
who stated that since the mass was only partially obstructing it would be possible to follow-up for surgery in the outpatient setting. Hematology and oncology was also consulted. An MRI was performed for further evaluation and surgical planning.
The tumor is staged as T1-2/N0. 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 Plans were made between colorectal surgery and oncology, that the patient may instead benefit from immunotherapy
instead of colonic resection.
DISCHARGE RECOMMENDATIONS
Follow up with your primary care provider for assistance in navigating your future appointments and scans.
Repeat a CBC for anemia in 1 week.
Patient family endorsed ASA 81mg daily, though this medication was not reconciled. The patient can restart this medication if there is no bleeding for a few days. If there is ongoing rectal bleeding, do not restart.
A bowel regimen was started for constipation. This regimen should be tailored by the primary care provider.
Follow up with with the oncologist for further recommendations regarding treatment and initiation immunotherapy.
CEA level is pending.
Patient will need a PET scan for evaluation of mediastinal lymphadenopathy.
Follow up with the colorectal surgeon Dr. Arevalo for further recommendations regarding your treatment.
Discharge Plan
-
Patient Disposition: Home (Routine Discharge)
Discharge Diagnosis/Procedures: Rectal cancer
Rectal bleeding
Iron deficiency anemia
History of cerebral vascular accident 2017
Hypertension
Constipation
Right lower extremity swelling
Hyperlipidemia
Depression
Condition: Fair
Diet: As tolerated
Activity: As tolerated
Driving Restrictions: No driving
Bathing Restrictions: None
Others Tests: Patient will need to schedule a PET Scan through primary care or oncologists office.
CEA level pending.
Activity Restrictions/Additional Instructions:
Follow-up with hematology oncology as well as Dr. Arevalo to continue/complete your workup and pursue further treatment for the rectal cancer.
Referrals:
Azar Arevalo MD [Active, ColoRectal] - in two to three weeks
Uyen Tolliver MD [Active, Gastroenterology] - in two weeks
Referral Note: Colon biopsy results
Poonam Benjamin MD [Active, Hematology / Oncology] - in less than 1 week
UNKNOWN - PT DOES,NOT KNOW [Family Provider]
Additional Discharge Medication Instructions: Home aspirin not in medication reconciliation, but per daughter he does take baby aspirin daily. He can restart aspirin at home if there is NO BLEEDING for a few days. If there is ongoing rectal
bleeding, do not restart.
Prescriptions:
New
sennosides [Senna Laxative] 8.6 mg tablet
8.6 mg PO BID Qty: 60 0RF
polyethylene glycol 3350 17 gram Powder In Packet
17 g PO DAILY Qty: 0 0RF
ferrous sulfate 325 mg (65 mg iron) tablet
325 mg PO Q48H Qty: 30 0RF
Continued
citalopram [Celexa] 20 mg Tablet
20 mg PO DAILY
atorvastatin [Lipitor] 40 mg Tablet
40 mg PO HS
trazodone 50 mg Tablet
50 mg PO HS
Discharge Orders:
Discharge Patient (As Directed); Ordered 07/17/25
Ordered By: Celestino Montgomery
Discharge Date and Time
Discharge Date/Time: 07/17/25 15:42
Print Language: ANGOLAN
[2025-07-17 19:40] LABS: CEA 1.32 ng/ml
== END 2025-07-17 15:42 | disposition home or self-care (01) | DRG 375 ==
LOC: 4 EAST ACU 19:03
PROVIDERS: Internal Medicine Gastroenterology; Nurse Practitioner Adult Health; Nurse Practitioner Family; Registered Nurse; ADMITTING PHYSICIAN Hospitalist; CONSULT PHYSICIAN Internal Medicine Gastroenterology; CONSULT PHYSICIAN Internal Medicine Hematology & Oncology; CONSULT PHYSICIAN Surgery; EMERGENCY PHYSICIAN Emergency Medicine
PROC: 0DBP8ZX Excision of Rectum, Via Natural or Artificial Opening Endoscopic, Diagnostic (ICD-10-PCS; 2025-07-13)
PROC: 0DJD8ZZ Inspection of Lower Intestinal Tract, Via Natural or Artificial Opening Endoscopic (ICD-10-PCS; 2025-07-15)
DX: C20 Malignant neoplasm of rectum (principal); D62 Acute posthemorrhagic anemia; I69.351 Hemiplegia and hemiparesis following cerebral infarction affecting right dominant side; D50.9 Iron deficiency anemia, unspecified; I10 Essential (primary) hypertension; F32.A Depression, unspecified; E78.00 Pure hypercholesterolemia, unspecified; M79.89 Other specified soft tissue disorders; I69.320 Aphasia following cerebral infarction; Z85.038 Personal history of other malignant neoplasm of large intestine; K57.30 Diverticulosis of large intestine without perforation or abscess without bleeding; K64.8 Other hemorrhoids; Z87.891 Personal history of nicotine dependence; Z88.5 Allergy status to narcotic agent; Z66 Do not resuscitate; Z79.899 Other long term (current) drug therapy; Z80.0 Family history of malignant neoplasm of digestive organs; Z86.19 Personal history of other infectious and parasitic diseases; Z98.0 Intestinal bypass and anastomosis status
CPT/HCPCS: 71260; 72197; 74019; 74177; 80048; 80053; 82378; 82607; 82728; 82962; 83540; 83550; 85014; 85018; 85025; 85027; 85610; 86850; 86900; 86901; 88305; 88342; 93005; 93971; 97162; 97166; 97530; 97535; 99285; A9575; J2916; Q9967